=== PATIENT | male | born 1955 | race Hispanic/Latino ===

== ENCOUNTER 2019-12-15 14:50 | Inpatient (IN) | payer MEDICARE ==
[~2019-12-15] VITALS: Ht 167.6 cm; Wt 75.9 kg
--- NOTE | 2019-12-15 15:24 | Emergency Department Note ---
History of Present Illnes History of Present Illness Chief Complaint: General Medicine Complaints History of Present Illness This is a 64 year old male Chief Complaint Comment PATIENT IN FROM HOME WITH COMPLAINTS OF BILATERAL LOWER EXTREMITY SWELLING AND ABDOMINAL PAIN X 2 WEEKS; STATES WAS SENT BY DR LEMUS FOR ADMISSION. Historian: Patient Arrival Mode: Car Skin Care Instructor Required: Yes Onset (how long ago): week(s) Location: Legs Quality: swelling Radiation: Reports non-radiation Severity: moderate Onset quality: gradual Duration (how long): week(s) Timing of current episode: constant Progression: worsening Chronicity: new Context: Denies recent illness Relieving factors: none Exacerbating factors: none Associated symptoms: Reports denies other symptoms Treatments prior to arrival: none Past Medical/Family History Physician Review I have reviewed the patient's past medical and family history. Any updates have been documented here. Past Medical History Recent Fever: No Clinical Suspicion of Infectio: No New/Unexplained Change in Ment: No Other Medical History: BPH Past Surgical History: None Social History Physically hurt or threatened: No Review of Systems Review of Systems Constitutional: Reports no symptoms EENTM: Reports no symptoms Cardiovascular: Reports no symptoms, Reports edema (BLE) Respiratory: Reports no symptoms Gastrointestinal: Reports no symptoms Genitourinary: Reports no symptoms Musculoskeletal: Reports no symptoms Integumentary: Reports no symptoms Neurological: Reports no symptoms Psychological: Reports no symptoms Endocrine: Reports no symptoms Hematological/Lymphatic: Reports no symptoms Physical Exam Related Data Allergies: Coded Allergies: No Known Allergies (Unverified , 12/15/19) Triage Vital Signs Vital Signs Date Time Temp Pulse Resp B/P (MAP) Pulse Ox O2 Delivery O2 Flow Rate FiO2 12/15/19 15:02 98.4 92 18 132/66 100 Room Air Physical Exam CONSTITUTIONAL Constitutional: Present well-developed, Present well-nourished HENT HENT: Present normocephalic, Present atraumatic, Present oropharynx clear/moist, Present nose normal HENT L/R: Present left ext ear normal, Present right ext ear normal EYES Eyes: Reports PERRL, Reports conjunctivae normal NECK Neck: Present ROM normal PULMONARY Pulmonary: Present effort normal, Present breath sounds normal CARDIOVASCULAR Cardiovascular: Present regular rhythm, Present heart sounds normal, Present capillary refill normal, Present normal rate GASTROINTESTINAL Abdominal: Present soft, Present nontender, Present bowel sounds normal GENITOURINARY Genitourinary: Present exam deferred SKIN Skin: Present warm, Present dry MUSCULOSKELETAL Musculoskeletal: Present ROM normal NEUROLOGICAL Neurological: Present alert, Present oriented x 3, Present no gross motor or sensory deficits PSYCHOLOGICAL Psychological: Present mood/affect normal, Present judgement normal Procedures 12 Lead ECG Interpretation ECG Interpretation : Skin Care Instructor: Interpreted by ED physician Date: Dec 15, 2019 Rhythm: sinus rhythm BPM: 89 QRS axis: normal ST segment flattening: V4, V5, V6 T waves flattening: V4, V5, V6 Clinical Impression: non-specific ECG Assessment & Plan Medical Decision Making MDM 64-year-old male with a history of colon cancer presenting for bilateral lower extremity edema. He is sent to the emergency department by Dr. Lemus for admission for further workup of his metastatic colon cancer. Examination shows 4+ pitting edema to bilateral lower extremities is otherwise unremarkable. Patient was discussed with Dr. Corrales who is accepting for Dr. Lemus agreed to admit the patient. Reassessment Reassessment Well appearing, NAD Assessment & Plan Final Impression: (1) Leg swelling Depart Disposition: ADMITTED Last Vital Signs Date Time Temp Pulse Resp B/P (MAP) Pulse Ox O2 Delivery O2 Flow Rate FiO2 12/15/19 15:02 98.4 92 18 132/66 100 Room Air VIC BRASWELL MD Dec 15, 2019 15:24
--- OUTSIDE RECORDS SUMMARY | 2019-12-15 15:33 | XMS REPORT | Continuity of Care Document ---
Author Author [facility] Organization [facility] Address [address] [place] [address] Phone Unavailable Care Team Providers Care Car Usher Name Role Phone Unavailable Unavailable Payers Payer Name Policy Type Policy Number Effective Date Expiration Date S ource Problems This patient has no known problems. Allergies, Adverse Reactions, Alerts Allergy Name Allergy Type Status Severity Reaction(s) Onset Date Inacti ve Date Treating Clinician Comments Source doxycycline DA Active GA 2019-06-17 00:00:00 [facility] No Known Allergies DA Active U 2019-06-13 00:00:00 [facility] Medications This patient has no known medications. Procedures This patient has no known procedures. Results Test Description Test Time Test Comments Results Result Comments Source BASIC METABOLIC PANEL 2019-06-18 03:27:00 Test Item SODIUM (test code = NA) 139 mmol/L 136-145 N POTASSIUM (test code = K) 3.5 mmol/L 3.5-5.1 N CHLORIDE (test code = CL) 104.0 mmol/L 98-107 N CARBON DIOXIDE (test code = CO2) 27.0 mmol/L 21-32 N ANION GAP (test code = GAP) 11.5 10-20 N GLUCOSE (test code = GLU) 84 mg/dL 74-106 N BLOOD UREA NITROGEN (test code = BUN) 13 mg/dL 7-18 N GLOMERULAR FILTRATION RATE (test code = GFR) > 60 mL/min >=60 Estimated GFR by using Modified MDRD formula.Chronic kidney disease is defined as either kidney damageor GFR <60 mL/min/1.73 m2 for >3 months. CREATININE (test code = CREAT) 0.90 mg/dL 0.7-1.3 N BUN/CREATININE RATIO (test code = BUN/CREA) 14.4 10-20 N CALCIUM (test code = CA) 8.2 mg/dL 8.5-10.1 L BASIC METABOLIC [id number] 03:22:00* Test Item Value Reference Range Interpretation Comments SODIUM (test code = NA) 139 mmol/L 136-145 N POTASSIUM (test code = K) 3.5 mmol/L 3.5-5.1 N CHLORIDE (test code = CL) 104.0 mmol/L 98-107 N CARBON DIOXIDE (test code = CO2) mmol/L 21-32 ANION GAP (test code = GAP) 10-20 GLUCOSE (test code = GLU) mg/dL 74-106 BLOOD UREA NITROGEN (test code = BUN) mg/dL 7-18 GLOMERULAR FILTRATION RATE (test code = GFR) mL/min >=60 CREATININE (test code = CREAT) mg/dL 0.7-1.3 BUN/CREATININE RATIO (test code = BUN/CREA) 10-20 CALCIUM (test code = CA) mg/dL 8.5-10.1 CBC W/AUTO [id number] 02:47:00* Test Item Value Reference Range Interpretation Comments WHITE BLOOD CELL (test code = WBC) 5.5 K/mm3 4.5-12.5 N RED BLOOD CELL (test code = RBC) 3.64 mill/mm3 4.0-5.8 L HEMOGLOBIN (test code = HGB) 9.7 gram/dL 13.0-17.5 L HEMATOCRIT (test code = HCT) 30.7 % 42.0-52.0 L MEAN CELL VOLUME (test code = MCV) 84.3 fL 80-98 N MEAN CELL HGB (test code = MCH) 26.6 picogram 27.0-33.0 L MEAN CELL HGB CONCETRATION (test code = MCHC) 31.6 gram/dL 33.0-36. 0 L RED CELL DISTRIBUTION WIDTH (test code = RDW) 12.8 % 11.6-16. 2 N RED CELL DISTRIBUTION WIDTH SD (test code = RDW-SD) 39.5 fL 37 .0-51.0 N PLATELET COUNT (test code = PLT) 245 K/mm3 150-450 N MEAN PLATELET VOLUME (test code = MPV) 8.9 fL 6.7-11.0 N NEUTROPHIL % (test code = NT%) 52.3 % 39.0-69.0 N IMMATURE GRANULOCYTE % (test code = IG%) 0.5 % 0.0-5.0 N LYMPHOCYTE % (test code = LY%) 29.0 % 25.0-55.0 N MONOCYTE % (test code = MO%) 15.7 % 0.0-10.0 H EOSINOPHIL % (test code = EO%) 2.0 % 0.0-5.0 N BASOPHIL % (test code = BA%) 0.5 % 0.0-1.0 N NUCLEATED RBC % (test code = NRBC%) 0.0 % 0-0 N NEUTROPHIL # (test code = NT#) 2.87 K/mm3 1.8-7.7 N IMMATURE GRANULOCYTE # (test code = IG#) 0.03 x10 3/uL 0-0.03 N LYMPHOCYTE # (test code = LY#) 1.59 K/mm3 1.0-5.0 N MONOCYTE # (test code = MO#) 0.86 K/mm3 0-0.8 H EOSINOPHIL # (test code = EO#) 0.11 K/mm3 0.0-0.5 N BASOPHIL # (test code = BA#) 0.03 K/mm3 0.0-0.2 N NUCLEATED RBC # (test code = NRBC#) 0.00 K/mm3 0.0-0.1 N MANUAL DIFF REQUIRED (test code = MDIFF) NO - XR CHEST 1 [id number] 18:13:00 FAX: Idris Collazo II, MD [place]: [address]: ADM Name: MEDINA DODD [facility] : [birth year] Age/S: 64/M [address] [facility] Unit #: [id number] Loc: VPablo3029 [address] [address] Phys: Idris Collazo II, MD Acct: [id number] Dis Date: Status: ADM IN PHONE #: [phone] Exam Date: 06/17/2019 1800 FAX #: [phone] Reason: FEVER, DYSPNEA EXAMS: CPT CODE: [id number] XR CHEST 1 V [id number] REASON FOR EXAM: FEVER, DY SPNEA Exam Order Date: 06/17/2019 5:08 PM Ordering M. D.: Idris Collazo II, MD PROCEDURE: - XR CHEST 1 V CO MPARISON: Chest x-ray June 13, 2019 FINDINGS: The lung s are hypoinflated and there are atelectatic changes in the middle lobe ve rsus a right pericardial fat pad that obscures the right cardiophrenic rec ess. This finding is unchanged from the prior exam. The remainder of the l ungs are clear. There is no pleural effusion or pneumothorax. Pulmonary va scularity is within normal limits. Cardiomediastinal silhouette is prominent however this may be exacerbated by the low lung volumes. The me diastinal contours are within normal limits. Degenerative ch anges are present in the spine. The visualized upper abdomen is wi thin normal limits. IMPRESSION: No acute cardiop ulmonary process or appreciable change from the prior exam. Location: [facility] Electronically Signed by Steffen Miller MD on 06/17 at 1813 Reported and signed by: Steffen Miller MD CC: Idris Collazo II, MD Technologist: ABBEY MAHER RT (R) Trnscrd Date/Time/By: 06/17 (1812) : By: [email or web address] [facility] Print D/T: S: 06/17/2019 (1815) PAGE 1 Signed Report BASIC METABOLIC [id number] 02:19:00* Test Item Value Reference Range Interpretation Comments SODIUM (test code = NA) 136 mmol/L 136-145 N POTASSIUM (test code = K) 3.6 mmol/L 3.5-5.1 N CHLORIDE (test code = CL) 106.0 mmol/L 98-107 N CARBON DIOXIDE (test code = CO2) 24.0 mmol/L 21-32 N ANION GAP (test code = GAP) 9.6 10-20 L GLUCOSE (test code = GLU) 84 mg/dL 74-106 N BLOOD UREA NITROGEN (test code = BUN) 16 mg/dL 7-18 N GLOMERULAR FILTRATION RATE (test code = GFR) > 60 mL/min >=60 Estimated GFR by using Modified MDRD formula.Chronic kidney disease is defined as either kidney damageor GFR <60 mL/min/1.73 m2 for >3 months. CREATININE (test code = CREAT) 0.90 mg/dL 0.7-1.3 N BUN/CREATININE RATIO (test code = BUN/CREA) 17.8 10-20 N CALCIUM (test code = CA) 7.8 mg/dL 8.5-10.1 L BASIC METABOLIC [id number] 02:14:00* Test Item Value Reference Range Interpretation Comments SODIUM (test code = NA) 136 mmol/L 136-145 N POTASSIUM (test code = K) 3.6 mmol/L 3.5-5.1 N CHLORIDE (test code = CL) 106.0 mmol/L 98-107 N CARBON DIOXIDE (test code = CO2) mmol/L 21-32 ANION GAP (test code = GAP) 10-20 GLUCOSE (test code = GLU) mg/dL 74-106 BLOOD UREA NITROGEN (test code = BUN) mg/dL 7-18 GLOMERULAR FILTRATION RATE (test code = GFR) mL/min >=60 CREATININE (test code = CREAT) mg/dL 0.7-1.3 BUN/CREATININE RATIO (test code = BUN/CREA) 10-20 CALCIUM (test code = CA) mg/dL 8.5-10.1 CBC W/AUTO [id number] 01:59:00* Test Item Value Reference Range Interpretation Comments WHITE BLOOD CELL (test code = WBC) 6.7 K/mm3 4.5-12.5 N RED BLOOD CELL (test code = RBC) 3.35 mill/mm3 4.0-5.8 L HEMOGLOBIN (test code = HGB) 9.1 gram/dL 13.0-17.5 L HEMATOCRIT (test code = HCT) 28.5 % 42.0-52.0 L MEAN CELL VOLUME (test code = MCV) 85.1 fL 80-98 N MEAN CELL HGB (test code = MCH) 27.2 picogram 27.0-33.0 N MEAN CELL HGB CONCETRATION (test code = MCHC) 31.9 gram/dL 33.0-36. 0 L RED CELL DISTRIBUTION WIDTH (test code = RDW) 13.1 % 11.6-16. 2 N RED CELL DISTRIBUTION WIDTH SD (test code = RDW-SD) 40.3 fL 37 .0-51.0 N PLATELET COUNT (test code = PLT) 214 K/mm3 150-450 MEAN PLATELET VOLUME (test code = MPV) 9.1 fL 6.7-11.0 N NEUTROPHIL % (test code = NT%) 54.7 % 39.0-69.0 N IMMATURE GRANULOCYTE % (test code = IG%) 0.6 % 0.0-5.0 N LYMPHOCYTE % (test code = LY%) 24.3 % 25.0-55.0 L MONOCYTE % (test code = MO%) 18.9 % 0.0-10.0 H EOSINOPHIL % (test code = EO%) 0.9 % 0.0-5.0 N BASOPHIL % (test code = BA%) 0.6 % 0.0-1.0 N NUCLEATED RBC % (test code = NRBC%) 0.0 % 0-0 N NEUTROPHIL # (test code = NT#) 3.67 K/mm3 1.8-7.7 N IMMATURE GRANULOCYTE # (test code = IG#) 0.04 x10 3/uL 0-0.03 H LYMPHOCYTE # (test code = LY#) 1.63 K/mm3 1.0-5.0 N MONOCYTE # (test code = MO#) 1.27 K/mm3 0-0.8 H EOSINOPHIL # (test code = EO#) 0.06 K/mm3 0.0-0.5 N BASOPHIL # (test code = BA#) 0.04 K/mm3 0.0-0.2 N NUCLEATED RBC # (test code = NRBC#) 0.00 K/mm3 0.0-0.1 N MANUAL DIFF REQUIRED (test code = MDIFF) NO - MRI L-SPINE W/O [id number] 18:31:00 FAX: Idris Collazo II, MD [place]: [address] St: ADM FAX: Daja Goff MD [phone] Name: MEDINA WARD [facility] : 1955 Age/S: 64/M [address] [facility] Unit #: [id number] Loc: V3029 [place] [address] Phys: Idris Collazo II, MD Acct: [id number] Dis Date: Status: ADM IN PHONE #: [phone] Exam Date: 06/16/2019 9983 FAX #: [phone] Reason: acute rle weakness, r/o radiculopathy EXAMS: CPT CODE: [id number] MRI L-SPINE W/O CONT [id number] HISTORY: acute rle weakness, r/o radiculopathy TECHNIQUE: Sagittal T2, sagittal T1, sagittal STIR, axial T1, and axial T2 sequences of the lumbar spine acquired without contrast. COMPARISON: None FINDINGS: No spondylolisthesis of the lumbar spine. There is a compression fracture of the L2 vertebral body. However there is no edema of the vertebral body suggesting that this is a chronic finding. Remaining vertebral bodies demonstrate normal height. There is also disc desiccation and multiple levels of the lumbar spine however the disc heights are preserved. The conus medullaris terminates at L2. There is severe left-sided foraminal narrowing at L2-L3 with the left L2 nerve root appearing to contact the adjacent facet joint. Facet hypertrophy with broad-based disc bulge causes moderate lateral foraminal narrowing. The right L3 nerve root appears to contact the posterior lateral aspect of the bulging disc. Bilateral facet hypertrophy and broad-based disc bulge causes mild bilateral foraminal narrowing at L4-L5. Broad-based disc bulge with bilateral facet hy pertrophy causes mild narrowing of the central canal and moderate right-si ded foraminal narrowing. 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 IMPRESSION: Chroni c compression fracture of the L2 vertebral body and multilevel degenerat garry changes. This results in foraminal narrowing and central canal narro wing as described above. The right L3 nerve root and the left L2 nerve r oot appear to contact the adjacent disc and facet prospectively. Correla te clinically for radiculopathy. Location: [facility] PAGE 1 Signed Report (CONTINUED) FAX: Idris Walls II, MD [place]: St: [facility] FAX: Adeline Goff MD [phone] Name: MEDINA WARD [facility] : 1955 Age/S: 64/M [address] [facility] Unit #: [id number] Loc: V.3029 [place] [address] Phys: Idris Collazo II, MD Acct: [id number] Dis Date: Status: ADM IN PHONE #: [phone] Exam Date: 06/16/2019 1615 FAX #: [phone] Reason: acute rle weakness, r/o radiculopathy EXAMS: CPT CODE: [id number] MRI L-SPINE W/O CONT [id number] < Continued> at 1831 Reported and signed by: Steffen Miller MD CC: Idris Collazo II, MD; Daja Goff MD Technologist: RT MARIIA - MRI [facility] Date/Time/By: 06/16/2019 (1830) : By: [email or web address] Orig Print D/T: S: 06/16/2019 (1833) PAGE 2 Signed Report - MRI LOW EXT W/O CONT [id number] 18:25:00 FAX: Eunice Ruiz [facility] [phone] [place]: St: ADM FAX: Daja Goff MD [phone] [facility] 1955 Age/S: 64/M [address] Unit #: [id number] Loc: V.3029 [place] [address] Phys: Eunice Hernandez DPM Acct: [id number] Dis Date: Status: ADM IN PHONE #: [phone] Exam Date: 06/16/2019 1640 FAX #: [phone] Reason: ++ edema abscess?? EXAMS: CPT CODE: [id number] MRI LOW EXT W/[place] [id number] HISTORY: Cellulitis TECHNIQUE: Sagittal T1, sagittal STIR, axial T1, axial T2 fat-sat, coronal T2, and coronal STIR sequences of the right foot were acquired without contrast. COMPARISON: None FINDINGS: There is edema of the soft tissues on the dorsum of the foot. However there is no abnormal marrow signal of the bones of the foot as would be expected with osteomyelitis. The bones are appropriately aligned although there is degenerative changes in the first MTP joint. Additionally no discrete fluid collection is seen. The tendons and ligaments of the foot are within normal limits. Ankle mortise is appropriately aligned. Plantar fascia is within normal limits. IMPRESSION: Cellulitis of the right foot but no findings to suggest osteomyelitis and no findings to suggest abscess. Location: [facility] at 1825 Reported and signed by: Steffen Miller MD CC: Eunice Hernandez DPM; Daja Goff MD Technologist: ISAÍAS MERRITTRT - MRI Trnscrd Da te/Time/By: 06/16/2019 (1824) : By: [email or web address] Orig Print D/T: S: 06/16 (1827) PAGE 1 Signed Report [id number] 14:40:00* Test Item Value Reference Range Interpretation Comments VANCOMYCIN (test code = VANCO) 15.9 UG/ML 5.0-45.0 N BASIC METABOLIC [id number] 06:05:00* Test Item Value Reference Range Interpretation Comments SODIUM (test code = NA) 139 mmol/L 136-145 N POTASSIUM (test code = K) 4.1 mmol/L 3.5-5.1 N CHLORIDE (test code = CL) 106.0 mmol/L 98-107 N CARBON DIOXIDE (test code = CO2) 26.0 mmol/L 21-32 N ANION GAP (test code = GAP) 11.1 10-20 N GLUCOSE (test code = GLU) 95 mg/dL 74-106 N BLOOD UREA NITROGEN (test code = BUN) 12 mg/dL 7-18 N GLOMERULAR FILTRATION RATE (test code = GFR) > 60 mL/min >=60 Estimated GFR by using Modified MDRD formula.Chronic kidney disease is defined as either kidney damageor GFR <60 mL/min/1.73 m2 for >3 months. CREATININE (test code = CREAT) 1.00 mg/dL 0.7-1.3 N BUN/CREATININE RATIO (test code = BUN/CREA) 12.0 10-20 N CALCIUM (test code = CA) 9.2 mg/dL 8.5-10.1 N BASIC METABOLIC [id number] 06:00:00* Test Item Value Reference Range Interpretation Comments SODIUM (test code = NA) 139 mmol/L 136-145 N POTASSIUM (test code = K) 4.1 mmol/L 3.5-5.1 N CHLORIDE (test code = CL) 106.0 mmol/L 98-107 N CARBON DIOXIDE (test code = CO2) mmol/L 21-32 ANION GAP (test code = GAP) 10-20 GLUCOSE (test code = GLU) mg/dL 74-106 BLOOD UREA NITROGEN (test code = BUN) mg/dL 7-18 GLOMERULAR FILTRATION RATE (test code = GFR) mL/min >=60 CREATININE (test code = CREAT) mg/dL 0.7-1.3 BUN/CREATININE RATIO (test code = BUN/CREA) 10-20 CALCIUM (test code = CA) mg/dL 8.5-10.1 CBC W/AUTO [id number] 05:37:00* Test Item Value Reference Range Interpretation Comments WHITE BLOOD CELL (test code = WBC) 13.3 K/mm3 4.5-12.5 H RED BLOOD CELL (test code = RBC) 3.79 mill/mm3 4.0-5.8 L HEMOGLOBIN (test code = HGB) 10.3 gram/dL 13.0-17.5 L HEMATOCRIT (test code = HCT) 32.1 % 42.0-52.0 L MEAN CELL VOLUME (test code = MCV) 84.7 fL 80-98 N MEAN CELL HGB (test code = MCH) 27.2 picogram 27.0-33.0 N MEAN CELL HGB CONCETRATION (test code = MCHC) 32.1 gram/dL 33.0-36. 0 L RED CELL DISTRIBUTION WIDTH (test code = RDW) 13.2 % 11.6-16. 2 N RED CELL DISTRIBUTION WIDTH SD (test code = RDW-SD) 40.9 fL 37 .0-51.0 N PLATELET COUNT (test code = PLT) 308 K/mm3 150-450 N MEAN PLATELET VOLUME (test code = MPV) 9.2 fL 6.7-11.0 N NEUTROPHIL % (test code = NT%) 64.9 % 39.0-69.0 N IMMATURE GRANULOCYTE % (test code = IG%) 0.5 % 0.0-5.0 N LYMPHOCYTE % (test code = LY%) 22.5 % 25.0-55.0 L MONOCYTE % (test code = MO%) 9.8 % 0.0-10.0 N EOSINOPHIL % (test code = EO%) 1.7 % 0.0-5.0 N BASOPHIL % (test code = BA%) 0.6 % 0.0-1.0 N NUCLEATED RBC % (test code = NRBC%) 0.0 % 0-0 N NEUTROPHIL # (test code = NT#) 8.61 K/mm3 1.8-7.7 H IMMATURE GRANULOCYTE # (test code = IG#) 0.07 x10 3/uL 0-0.03 H LYMPHOCYTE # (test code = LY#) 2.99 K/mm3 1.0-5.0 N MONOCYTE # (test code = MO#) 1.30 K/mm3 0-0.8 H EOSINOPHIL # (test code = EO#) 0.23 K/mm3 0.0-0.5 N BASOPHIL # (test code = BA#) 0.08 K/mm3 0.0-0.2 N NUCLEATED RBC # (test code = NRBC#) 0.00 K/mm3 0.0-0.1 N MANUAL DIFF REQUIRED (test code = MDIFF) NO - XR HIP W/PEL UNI 2+V [id number] 15:52:00 FAX: Osvaldo Cho MD [phone] [place]: St: [facility] FAX: Daja Goff MD [phone] Name: MEDINA WARD [facility] : 1955 Age/S: 64/M [address] [facility] Unit #: [id number] Loc: [address] [address] Phys: Daja Goff MD Acct: [id number] Dis Date: Status: ADM IN PHONE #: [phone] Exam Date: 06/14/2019 1533 FAX #: [phone] Reason: pain EXAMS: CPT CODE: [id number] XR HIP W/PEL UNI 2+[place] [id number] HISTORY: pain EXAM: AP pelvis as well as AP and frog-leg views of the right hip Comparison: None FIN DINGS: No acute fracture of the bony pelvis. No micheal stases of the SI joints or pubic symphysis. Hip joints are not di slocated. Proximal femurs are intact. Lower lumbar spine is unremarkable. IMPRESSION: Negative radiographic exami nation of the bony pelvis. Location: [facility] Signed by Steffen Miller MD on 06/14/2019 at 1552 Rep orted and signed by: Steffen Miller MD CC: Osvadlo Cho MD; Daja Argueta MD Technologist: Kiara Akbar RT(R); Natasha Chambers(R) Trnscrd Date/Time/By: 06/14/2019 (1552) : By: [email or web address] Orig Print D/T: S: 06/14/2019 (5100) PAGE 1 Signed Report [id number] 13:34:00* Test Item Value Reference Range Interpretation Comments GLYCOSYLATED HEMOGLOBIN (HA1C) (test code = GLYHGB) 5.6 % HbA1 SUGGESTED DIAGNOSIS: HbA1C (%) Diabetic >6.4Prediabetes 5.7 - 6.4Normal <5.7 ESTIMATED AVERAGE GLUCOSE (test code = EAG) 114 MG/DL CBC W/O [id number] 13:16:00* Test Item Value Reference Range Interpretation Comments WHITE BLOOD CELL (test code = WBC) 13.2 K/mm3 4.5-12.5 H RED BLOOD CELL (test code = RBC) 4.01 mill/mm3 4.0-5.8 N HEMOGLOBIN (test code = HGB) 10.8 gram/dL 13.0-17.5 L HEMATOCRIT (test code = HCT) 34.5 % 42.0-52.0 L MEAN CELL VOLUME (test code = MCV) 86.0 fL 80-98 N MEAN CELL HGB (test code = MCH) 26.9 picogram 27.0-33.0 L MEAN CELL HGB CONCETRATION (test code = MCHC) 31.3 gram/dL 33.0-36. 0 L RED CELL DISTRIBUTION WIDTH (test code = RDW) 13.2 % 11.6-16. 2 N PLATELET COUNT (test code = PLT) 313 K/mm3 150-450 N MEAN PLATELET VOLUME (test code = MPV) 9.2 fL 6.7-11.0 N BASIC METABOLIC [id number] 06:54:00* Test Item Value Reference Range Interpretation Comments SODIUM (test code = NA) 139 mmol/L 136-145 N POTASSIUM (test code = K) 4.0 mmol/L 3.5-5.1 N CHLORIDE (test code = CL) 109.0 mmol/L 98-107 H CARBON DIOXIDE (test code = CO2) 24.0 mmol/L 21-32 N ANION GAP (test code = GAP) 10.0 10-20 N GLUCOSE (test code = GLU) 89 mg/dL 74-106 N BLOOD UREA NITROGEN (test code = BUN) 14 mg/dL 7-18 N GLOMERULAR FILTRATION RATE (test code = GFR) > 60 mL/min >=60 Estimated GFR by using Modified MDRD formula.Chronic kidney disease is defined as either kidney damageor GFR <60 mL/min/1.73 m2 for >3 months. CREATININE (test code = CREAT) 0.90 mg/dL 0.7-1.3 N BUN/CREATININE RATIO (test code = BUN/CREA) 15.6 10-20 N CALCIUM (test code = CA) 8.8 mg/dL 8.5-10.1 N LIPID PROFILE (CORONARY RISK)2019-06-14 06:54:00* Test Item Value Reference Range Interpretation Comments TRIGLYCERIDES (test code = TRIG) 111 mg/dL 20-150 N CHOLESTEROL (test code = CHOL) 99 mg/dL 0-200 N CHOLESTEROL/HDL RATIO (test code = CHOLHDL) 2.0 RATIO 0-4.9 N RISK ASSOCIATED WITH CHOL/HDL RATIOS: Risk Male Female1/2 AVERAGE 3.43 3.27AVERAGE 4.97 4.442X AVERAGE 9.55 7.053X AVERAGE 23.39 11.04 REFERENCE VALUE IS RELATED TO RISK LEVELS ASRECOMMENDED BY THE JENNA. HEART, LUNG, AND BLOOD INST. HDL CHOLESTEROL (test code = HDL) 34 mg/dL 40-60 L LIPOPROTEIN LDL (test code = LDL) 59 mg/dL 100-129 L Reference Interval: mg/dL mmol/L Optimal <100 <2.6Near/above optimal 100-129 2.6- 3.3Borderline High 130-159 3.4-4.1High 160-189 4.1-4.9Very High >=190 >=4.9========= This LDL result is a direct measurement.========= FE W/TOTAL IRON BINDING CAP.2019-06-14 06:54:00* Test Item Value Reference Range Interpretation Comments SERUM IRON (test code = IRON) 37 ug/dL 50-175 L TOTAL IRON BINDING CAPACITY (test code = TIBC) 383 mcg/dL 250-450 N IRON SATURATION (test code = FESAT) 9.66 % 13-45 L [id number] 06:54:00* Test Item Value Reference Range Interpretation Comments FERRITIN (test code = KAUSHAL) 30 ng/mL 8-388 N BASIC METABOLIC [id number] 06:02:00* Test Item Value Reference Range Interpretation Comments SODIUM (test code = NA) 139 mmol/L 136-145 N POTASSIUM (test code = K) 4.0 mmol/L 3.5-5.1 N CHLORIDE (test code = CL) 109.0 mmol/L 98-107 H CARBON DIOXIDE (test code = CO2) 24.0 mmol/L 21-32 N ANION GAP (test code = GAP) 10.0 10-20 N GLUCOSE (test code = GLU) 89 mg/dL 74-106 N BLOOD UREA NITROGEN (test code = BUN) 14 mg/dL 7-18 N GLOMERULAR FILTRATION RATE (test code = GFR) mL/min >=60 CREATININE (test code = CREAT) mg/dL 0.7-1.3 BUN/CREATININE RATIO (test code = BUN/CREA) 10-20 CALCIUM (test code = CA) 8.8 mg/dL 8.5-10.1 N LIPID PROFILE (CORONARY RISK)2019-06-14 06:02:00* Test Item Value Reference Range Interpretation Comments TRIGLYCERIDES (test code = TRIG) mg/dL 20-150 CHOLESTEROL (test code = CHOL) mg/dL 0-200 CHOLESTEROL/HDL RATIO (test code = CHOLHDL) RATIO 0-4.9 HDL CHOLESTEROL (test code = HDL) mg/dL 40-60 LIPOPROTEIN LDL (test code = LDL) mg/dL 100-129 FE W/TOTAL IRON BINDING CAP.2019-06-14 06:02:00* Test Item Value Reference Range Interpretation Comments SERUM IRON (test code = IRON) ug/dL 50-175 TOTAL IRON BINDING CAPACITY (test code = TIBC) mcg/dL 250-450 IRON SATURATION (test code = FESAT) % 13-45 [id number] 06:02:00* Test Item Value Reference Range Interpretation Comments FERRITIN (test code = KAUSHAL) ng/mL 8-388 BASIC METABOLIC [id number] 05:59:00* Test Item Value Reference Range Interpretation Comments SODIUM (test code = NA) 139 mmol/L 136-145 N POTASSIUM (test code = K) 4.0 mmol/L 3.5-5.1 N CHLORIDE (test code = CL) 109.0 mmol/L 98-107 H CARBON DIOXIDE (test code = CO2) mmol/L 21-32 ANION GAP (test code = GAP) 10-20 GLUCOSE (test code = GLU) mg/dL 74-106 BLOOD UREA NITROGEN (test code = BUN) mg/dL 7-18 GLOMERULAR FILTRATION RATE (test code = GFR) mL/min >=60 CREATININE (test code = CREAT) mg/dL 0.7-1.3 BUN/CREATININE RATIO (test code = BUN/CREA) 10-20 CALCIUM (test code = CA) mg/dL 8.5-10.1 LIPID PROFILE (CORONARY RISK)2019-06-14 05:59:00* Test Item Value Reference Range Interpretation Comments TRIGLYCERIDES (test code = TRIG) mg/dL 20-150 CHOLESTEROL (test code = CHOL) mg/dL 0-200 CHOLESTEROL/HDL RATIO (test code = CHOLHDL) RATIO 0-4.9 HDL CHOLESTEROL (test code = HDL) mg/dL 40-60 LIPOPROTEIN LDL (test code = LDL) mg/dL 100-129 FE W/TOTAL IRON BINDING CAP.2019-06-14 05:59:00* Test Item Value Reference Range Interpretation Comments SERUM IRON (test code = IRON) ug/dL 50-175 TOTAL IRON BINDING CAPACITY (test code = TIBC) mcg/dL 250-450 IRON SATURATION (test code = FESAT) % 13-45 [id number] 05:59:00* Test Item Value Reference Range Interpretation Comments FERRITIN (test code = KAUSHAL) ng/mL 8-388 URINALYSIS [id number] 19:22:00* Test Item Value Reference Range Interpretation Comments UA COLOR (test code = COLU) COLORLESS YELLOW A UA APPEARANCE (test code = APPU) CLEAR CLEAR UA GLUCOSE DIPSTICK (test code = DGLUU) NEGATIVE mg/dL NEGATIVE UA BILIRUBIN DIPSTICK (test code = BILU) NEGATIVE mg/dL NEGATIVE UA KETONE DIPSTICK (test code = KETU) NEGATIVE mg/dL NEGATIVE UA SPECIFIC GRAVITY (test code = SGU) 1.011 1.001-1.035 UA BLOOD DIPSTICK (test code = SILVER) Negative mg/dL NEGATIVE UA PH DIPSTICK (test code = SHARYN) 6.5 5.0-8.0 UA PROTEIN DIPSTICK (test code = PROU) NEGATIVE mg/dL NEGATIVE UA UROBILINIOGEN DIPSTICK (test code = URO) Normal mg/dL NEGATIVE UA NITRITE DIPSTICK (test code = SANA) NEGATIVE NEGATIVE UA LEUKOCYTE ESTERASE W REFLEX (test code = LEUUR) NEGATIVE Renu/uL NEGATIVE UA WBC (test code = WBCU) per HPF 0-5 UA RBC (test code = RBCU) per HPF 0-5 UA EPITHELIAL CELLS (test code = EPIU) per HPF Few UA BACTERIA (test code = BACU) per HPF NONE Urine Source? Clean CatchURINALYSIS [id number] 19:22:00* Test Item Value Reference Range Interpretation Comments UA COLOR (test code = COLU) COLORLESS YELLOW A UA APPEARANCE (test code = APPU) CLEAR CLEAR UA GLUCOSE DIPSTICK (test code = DGLUU) NEGATIVE mg/dL NEGATIVE UA BILIRUBIN DIPSTICK (test code = BILU) NEGATIVE mg/dL NEGATIVE UA KETONE DIPSTICK (test code = KETU) NEGATIVE mg/dL NEGATIVE UA SPECIFIC GRAVITY (test code = SGU) 1.011 1.001-1.035 UA BLOOD DIPSTICK (test code = SILVER) Negative mg/dL NEGATIVE UA PH DIPSTICK (test code = SHARYN) 6.5 5.0-8.0 UA PROTEIN DIPSTICK (test code = PROU) NEGATIVE mg/dL NEGATIVE UA UROBILINIOGEN DIPSTICK (test code = URO) Normal mg/dL NEGATIVE UA NITRITE DIPSTICK (test code = SANA) NEGATIVE NEGATIVE UA LEUKOCYTE ESTERASE W REFLEX (test code = LEUUR) NEGATIVE Renu/uL NEGATIVE UA WBC (test code = WBCU) NONE SEEN per HPF 0-5 UA RBC (test code = RBCU) 0-2 #/HPF 0-5 UA EPITHELIAL CELLS (test code = EPIU) None seen per HPF FEW UA BACTERIA (test code = BACU) NONE SEEN #/HPF NONE Urine Source? Clean CatchLACTIC [id number] 18:47:00* Test Item Value Reference Range Interpretation Comments LACTIC ACID (test code = LACT) 1.2 mmol/L 0.4-1.9 N B-TYPE NATRIURETIC [id number] 15:33:00* Test Item Value Reference Range Interpretation Comments B-TYPE NATRIURETIC PEPTIDE (test code = BNP) 31.92 pgram/mL 0-100 N PROTHROMBIN [id number] 15:28:00* Test Item Value Reference Range Interpretation Comments PROTHROMBIN TIME PATIENT (test code = PTP) 14.6 seconds 9.0-14.0 H INTERNATIONAL NORMAL RATIO (test code = INR) 1.2 0.8-1.2 N The therapeutic range for oral anticoagulant therapy formost indications is an international normalized ratio (INR)of between 2.0 and 3.0. The recommended therapeutic INRrange for various clinical situations is listed below: Clinical Situation INR range Pulmonary e mbolism treatment (2.0-3.0)Venous thrombosis treatmentVenous thrombosis prophylaxis (high risk surgery)Prevention of systemic embolism from: Acute myocardial infarction Valvular heart disease Atrial fibrillation Mechanical prosthetic heart valves (2.5-3.5) IS PATIENT ON ANTICOAGULANTS? NTHROMBOPLASTIN TIME [id number] 15:28:00* Test Item Value Reference Range Interpretation Comments THROMBOPLASTIN TIME PARTIAL (test code = PTT) 34.0 seconds 25.0-36. 5 N IS PATIENT ON ANTICOAGULANTS? NLACTIC [id number] 15:25:00* Test Item Value Reference Range Interpretation Comments LACTIC ACID (test code = LACT) 2.4 mmol/L 0.4-1.9 HH Results called to DR ESPOSITO by [email or web address] 06/13/19 1525Critical results verified and read back by Nurse? Y BASIC METABOLIC [id number] 15:08:00* Test Item Value Reference Range Interpretation Comments SODIUM (test code = NA) 137 mmol/L 136-145 N POTASSIUM (test code = K) 4.1 mmol/L 3.5-5.1 N CHLORIDE (test code = CL) 109.0 mmol/L 98-107 H CARBON DIOXIDE (test code = CO2) 21.0 mmol/L 21-32 N ANION GAP (test code = GAP) 11.1 10-20 N GLUCOSE (test code = GLU) 100 mg/dL 74-106 N BLOOD UREA NITROGEN (test code = BUN) 17 mg/dL 7-18 N GLOMERULAR FILTRATION RATE (test code = GFR) > 60 mL/min >=60 Estimated GFR by using Modified MDRD formula.Chronic kidney disease is defined as either kidney damageor GFR <60 mL/min/1.73 m2 for >3 months. CREATININE (test code = CREAT) 0.90 mg/dL 0.7-1.3 N BUN/CREATININE RATIO (test code = BUN/CREA) 18.9 10-20 N CALCIUM (test code = CA) 9.0 mg/dL 8.5-10.1 N HEPATIC FUNCTION [id number] 15:08:00* Test Item Value Reference Range Interpretation Comments TOTAL PROTEIN (test code = PROT) 8.1 gram/dL 6.4-8.2 N ALBUMIN (test code = ALB) 2.7 g/dL 3.4-5.0 L GLOBULIN (test code = GLOB) 5.4 gram/dL 2.7-4.2 H ALBUMIN/GLOBULIN RATIO (test code = A/G) 0.5 0.75-1.50 L BILIRUBIN TOTAL (test code = BILT) 0.20 mg/dL 0.0-1.0 N BILIRUBIN DIRECT (test code = BILD) 0.09 mg/dL 0.0-0.20 N SGOT/AST (test code = AST) 13 IUnit/L 15-37 L SGPT/ALT (test code = ALT) 13 IUnit/L 12-78 N ALKALINE PHOSPHATASE TOTAL (test code = ALKP) 203 IUnit/L 45-117 H Note change in reference range due to change in reagent. [id number] 15:08:00* Test Item Value Reference Range Interpretation Comments TROPONIN-I (test code = TROPI) <0.015 ng/mL 0-0.045 N BASIC METABOLIC [id number] 14:58:00* Test Item Value Reference Range Interpretation Comments SODIUM (test code = NA) 137 mmol/L 136-145 N POTASSIUM (test code = K) 4.1 mmol/L 3.5-5.1 N CHLORIDE (test code = CL) 109.0 mmol/L 98-107 H CARBON DIOXIDE (test code = CO2) mmol/L 21-32 ANION GAP (test code = GAP) 10-20 GLUCOSE (test code = GLU) mg/dL 74-106 BLOOD UREA NITROGEN (test code = BUN) mg/dL 7-18 GLOMERULAR FILTRATION RATE (test code = GFR) mL/min >=60 CREATININE (test code = CREAT) mg/dL 0.7-1.3 BUN/CREATININE RATIO (test code = BUN/CREA) 10-20 CALCIUM (test code = CA) mg/dL 8.5-10.1 HEPATIC FUNCTION [id number] 14:58:00* Test Item Value Reference Range Interpretation Comments TOTAL PROTEIN (test code = PROT) gram/dL 6.4-8.2 ALBUMIN (test code = ALB) g/dL 3.4-5.0 GLOBULIN (test code = GLOB) gram/dL 2.7-4.2 ALBUMIN/GLOBULIN RATIO (test code = A/G) 0.75-1.50 BILIRUBIN TOTAL (test code = BILT) mg/dL 0.0-1.0 BILIRUBIN DIRECT (test code = BILD) mg/dL 0.0-0.20 SGOT/AST (test code = AST) IUnit/L 15-37 SGPT/ALT (test code = ALT) IUnit/L 12-78 ALKALINE PHOSPHATASE TOTAL (test code = ALKP) IUnit/L 45-117 [id number] 14:58:00* Test Item Value Reference Range Interpretation Comments TROPONIN-I (test code = TROPI) ng/mL 0-0.045 - XR ANKLE 3 + V [id number] 14:42:00 FAX: Gene Esposito MD [phone] [place]: B St: REG Name: MEDINA DODD [facility] : [birth year] Age/S: 64/M [address] [facility] Unit #: [id number] Loc: [place] [address] Phys: Gene Esposito MD Acct: [id number] Dis Date: Status: REG ER PHONE #: [phone] Exam Date: 06/13/2019 1430 FAX #: [phone] Reason: leg swelling redness EXAMS: CPT CODE: [id number] XR ANKLE 3 + V RT [id number] CLINICAL HISTORY: leg swelling red ness TECHNIQUE: AP, oblique, and lateral views of the right foot a nd ankle as well as AP and lateral views of the right tibia and fibula COMPARISON: None FINDINGS: No acute fract ure or dislocation. Bony trabecular pattern is unremarkable. No cortical d estruction or periosteal reaction. Joint spaces are preserved. An kle mortise is appropriately aligned. Moderate-sized calcaneal enthesophyt es are present. Intertarsal degenerative changes are present. There is diffuse swelling of the soft tissues throughout the visualized lower extremity. Vascular calcifications are also present. IMPRESSION: Diffuse soft tissue swelling of the visualized right lower extremity but no joint effusion or acute bony abnormality. Location: [facility] at 1442 Reported and signed by: Steffen kim MD CC: Gene Esposito MD Technologist: JIMMIE ERICKSON RT(R) Trnscrd Da te/Time/By: 06/13/2019 (9245) : By: [email or web address] Orig Print D/T: S: 06/13 (2791) PAGE 1 Signed Report - XR FOOT 3 + V [id number] 14:42:00 FAX: Gene Esposito MD [phone] [place]: St: REG Name: MEDINA DODD [facility] : [birth year] Age/S: 64/M [address] [facility] Unit #: [id number] Loc: [place] [address] Phys: Gene Esposito MD Acct: [id number] Dis Date: Status: REG ER PHONE #: [phone] Exam Date: 06/13/2019 1430 FAX #: [phone] Reason: leg swelling redness EXAMS: CPT CODE: [id number] XR FOOT 3 + V RT 13651 CLINICAL HISTORY: leg swelling red ness TECHNIQUE: AP, oblique, and lateral views of the right foot a nd ankle as well as AP and lateral views of the right tibia and fibula COMPARISON: None FINDINGS: No acute fract ure or dislocation. Bony trabecular pattern is unremarkable. No cortical d estruction or periosteal reaction. Joint spaces are preserved. An kle mortise is appropriately aligned. Moderate-sized calcaneal enthesophyt es are present. Intertarsal degenerative changes are present. There is diffuse swelling of the soft tissues throughout the visualized lower extremity. Vascular calcifications are also present. IMPRESSION: Diffuse soft tissue swelling of the visualized right lower extremity but no joint effusion or acute bony abnormality. Location: [facility] at 1442 Reported and signed by: Steffen kim MD CC: Gene Esposito MD Technologist: JIMMIE ERICKSON RT(R) Trnscrd Da te/Time/By: 06/13/2019 (9316) : By: [email or web address] Orig Print D/T: S: 06/13 (0362) PAGE 1 Signed Report - XR TIBIA/FIBULA 2 V [id number] 14:42:00 FAX: Gene Esposito MD [phone] [place]: St: REG Name: MEDINA DODD [facility] : [birth year] Age/S: 64/M [address] [facility] Unit #: [id number] Loc: [place] [address] Phys: Gene Esposito MD Acct: [id number] Dis Date: Status: REG ER PHONE #: [phone] Exam Date: 06/13/2019 1430 FAX #: [phone] Reason: leg swelling redness EXAMS: CPT CODE: [id number] XR TIBIA/FIBULA 2 [place] [address] CLINICAL HISTORY: leg swelling red ness TECHNIQUE: AP, oblique, and lateral views of the right foot a nd ankle as well as AP and lateral views of the right tibia and fibula COMPARISON: None FINDINGS: No acute fract ure or dislocation. Bony trabecular pattern is unremarkable. No cortical d estruction or periosteal reaction. Joint spaces are preserved. An kle mortise is appropriately aligned. Moderate-sized calcaneal enthesophyt es are present. Intertarsal degenerative changes are present. There is diffuse swelling of the soft tissues throughout the visualized lower extremity. Vascular calcifications are also present. IMPRESSION: Diffuse soft tissue swelling of the visualized right lower extremity but no joint effusion or acute bony abnormality. Location: [facility] at 1442 Reported and signed by: Steffen kim MD CC: Gene Esposito MD Technologist: JIMMIE ERICKSON RT(R) Trnscrd Da te/Time/By: 06/13/2019 (8642) : By: [email or web address] Orig Print D/T: S: 06/13 (0113) PAGE 1 Signed Report - XR CHEST 1 [id number] 14:42:00 FAX: Gene Esposito MD [phone] [place]: St: REG Name: MEDINA DODD [facility] : [birth year] Age/S: 64/M [address] [facility] Unit #: [id number] Loc: [place], [place] [address] Phys: Gene Esposito MD Acct: [id number] Dis Date: Status: REG ER PHONE #: [phone] Exam Date: 06/13/2019 1430 FAX #: [phone] Reason: CODE SEPSIS EXAMS: CPT CODE: [id number] XR CHEST 1 V [id number] REASON FOR EXAM: CODE SEPSIS Exam Order Date: 06/13/2019 2:08 PM Ordering M.D.: Gene Esposito MD PROCEDURE: - XR CHEST 1 V COMPARI SON: None FINDINGS: The lungs are clear. There is no pleu ral effusion or pneumothorax. Pulmonary vascularity is within normal limit s. Cardiomediastinal silhouette is normal in size for technique. T he mediastinal contours are within normal limits. Musculoske letal structures are within normal limits. The visualized upper ab domen is within normal limits. IMPRESSION: No ac amarjit cardiopulmonary process. Location: [facility] Electro nically Signed by Steffen Miller MD on 06/13/2019 at 1442 R eported and signed by: Steffen Miller MD CC: Gene Esposito MD Technologist: JIMMIE ERICKSON RT(R) Trnscrd Date/Time/By: 06/13/2019 (6600) : By: [email or web address] Orig Print D/T: S: 06/13/2019 (5628) PAGE 1 Signed Report CBC W/AUTO [id number] 14:33:00* Test Item Value Reference Range Interpretation Comments WHITE BLOOD CELL (test code = WBC) 14.2 K/mm3 4.5-12.5 H RED BLOOD CELL (test code = RBC) 4.01 mill/mm3 4.0-5.8 N HEMOGLOBIN (test code = HGB) 11.0 gram/dL 13.0-17.5 L HEMATOCRIT (test code = HCT) 35.9 % 42.0-52.0 L MEAN CELL VOLUME (test code = MCV) 89.5 fL 80-98 N MEAN CELL HGB (test code = MCH) 27.4 picogram 27.0-33.0 N MEAN CELL HGB CONCETRATION (test code = MCHC) 30.6 gram/dL 33.0-36. 0 L RED CELL DISTRIBUTION WIDTH (test code = RDW) 13.3 % 11.6-16. 2 N RED CELL DISTRIBUTION WIDTH SD (test code = RDW-SD) 44.3 fL 37 .0-51.0 N PLATELET COUNT (test code = PLT) 300 K/mm3 150-450 N MEAN PLATELET VOLUME (test code = MPV) 9.2 fL 6.7-11.0 N NEUTROPHIL % (test code = NT%) 63.0 % 39.0-69.0 N IMMATURE GRANULOCYTE % (test code = IG%) 0.5 % 0.0-5.0 N LYMPHOCYTE % (test code = LY%) 23.5 % 25.0-55.0 L MONOCYTE % (test code = MO%) 10.2 % 0.0-10.0 H EOSINOPHIL % (test code = EO%) 2.2 % 0.0-5.0 N BASOPHIL % (test code = BA%) 0.6 % 0.0-1.0 N NUCLEATED RBC % (test code = NRBC%) 0.0 % 0-0 N NEUTROPHIL # (test code = NT#) 8.97 K/mm3 1.8-7.7 H IMMATURE GRANULOCYTE # (test code = IG#) 0.07 x10 3/uL 0-0.03 H LYMPHOCYTE # (test code = LY#) 3.34 K/mm3 1.0-5.0 N MONOCYTE # (test code = MO#) 1.45 K/mm3 0-0.8 H EOSINOPHIL # (test code = EO#) 0.32 K/mm3 0.0-0.5 N BASOPHIL # (test code = BA#) 0.08 K/mm3 0.0-0.2 N NUCLEATED RBC # (test code = NRBC#) 0.00 K/mm3 0.0-0.1 N
[2019-12-15 15:39] LABS: BASOPHILS % 0.1 % (0.0-1.0); EOSINOPHILS % 0.3 % (0.0-6.0); HEMATOCRIT 26.5 % (38.2-49.6); HEMOGLOBIN 8.1 g/dL (14.0-18.0); LYMPHOCYTES # (AUTO) 1.9 (1.0-3.2); LYMPHOCYTES % 12.6 % (18.0-39.1); MEAN CORPUSCULAR HEMOGLOBIN 24.3 pg (28-32); MEAN CORPUSCULAR HGB CONC 30.6 g/dL (31-35); MEAN CORPUSCULAR VOLUME 79.6 fL (81-99); MONOCYTES # (AUTO) 0.8 (0.2-0.8); MONOCYTES % 5.5 % (4.4-11.3); NEUTROPHILS # (AUTO) 12.3 (2.1-6.9); NEUTROPHILS % 80.6 % (38.7-80.0); PLATELET COUNT 291 x10e3/uL (140-360); RED BLOOD COUNT 3.33 x10e6/uL (4.3-5.7); RED CELL DISTRIBUTION WIDTH 19.7 % (11.7-14.4)
[2019-12-15 16:02] LABS: ALANINE AMINOTRANSFERASE 38 IU/L (0-55); ALBUMIN 2.5 g/dL (3.5-5.0); ALBUMIN/GLOBULIN RATIO 0.6 (0.8-2.0); ALKALINE PHOSPHATASE 1044 IU/L (40-150); ANION GAP 21.6 mmol/L (8-16); BLOOD UREA NITROGEN 13 mg/dL (7-26); BUN/CREATININE RATIO 14 (6-25); CALCIUM 8.1 mg/dL (8.4-10.2); CARBON DIOXIDE 23 mmol/L (22-29); CHLORIDE 97 mmol/L (98-107); CREATININE, SERUM 0.96 mg/dL (0.72-1.25); EST GLOMERULAR FILTRATION RATE > 60 ML/MIN (60-); GLUCOSE 95 mg/dL (74-118); SODIUM 139 mmol/L (136-145)
--- OUTSIDE RECORDS SUMMARY | 2019-12-15 16:03 | XMS REPORT | Continuity of Care Document ---
Author Author [facility] Organization [facility] Address [address] [place] [address] Phone Unavailable Care Team Providers Care [place] Worker Name Role Phone Unavailable Unavailable Payers Payer Name Policy Type Policy Number Effective Date Expiration Date S ource Problems This patient has no known problems. Allergies, Adverse Reactions, Alerts Allergy Name Allergy Type Status Severity Reaction(s) Onset Date Inacti ve Date Treating Clinician Comments Source doxycycline DA Active IA 2019-06-17 00:00:00 [facility] No Known Allergies DA Active U 2019-06-13 00:00:00 [facility] Medications This patient has no known [...] CA) 8.2 mg/dL 8.5-10.1 L BASIC METABOLIC [id number] 03:22:00* Test Item Value Reference Range Interpretation [...] code = CA) mg/dL 8.5-10.1 CBC W/AUTO [id number] 02:47:00* Test Item Value Reference Range Interpretation [...] = MDIFF) NO - XR CHEST 1 [id number] 18:13:00 FAX: Idris Collazo II, MD [place]: [address]: ADM Name: MEDINA DODD [facility] : [birth year] Age/S: 64/M [address] [facility] Unit #: [id number] Loc: VPablo30[address] [place] [address] Phys: Idris Collazo II, MD Acct: [id number] Dis Date: Status: ADM IN PHONE #: [phone] Exam Date: 06/17/2019 1800 FAX #: [phone] Reason: FEVER, DYSPNEA EXAMS: CPT CODE: [id number] XR CHEST 1 V 17155 REASON FOR EXAM: FEVER, DY SPNEA Exam [...] appreciable change from the prior exam. Location: [facility] Electronically Signed by Steffen Miller MD on 06/17 at 1813 Reported and signed by: Steffen Miller MD CC: Idris Collazo II, MD Technologist: ABBEY MAHER RT (R) Trnscrd Date/Time/By: 06/17 (1812) : By: [email or web address] [facility] Print D/T: S: 06/17/2019 (1815) PAGE 1 Signed Report BASIC METABOLIC [id number] 02:19:00* Test Item Value Reference Range Interpretation [...] CA) 7.8 mg/dL 8.5-10.1 L BASIC METABOLIC [id number] 02:14:00* Test Item Value Reference Range Interpretation [...] code = CA) mg/dL 8.5-10.1 CBC W/AUTO [id number] 01:59:00* Test Item Value Reference Range Interpretation [...] = MDIFF) NO - MRI L-SPINE W/O [id number] 18:31:00 FAX: Idris Collazo II, MD [place]: B St: ADM FAX: Daja Goff MD [phone] Name: MEDINA WARD [facility] : 1955 Age/S: 64/M [address] [facility] Unit #: [id number] Loc: V[address] [place] [address] Phys: Idris Collazo II, MD Acct: [id number] Dis Date: Status: ADM IN PHONE #: [phone] Exam Date: 06/16/2019 7149 FAX #: [phone] Reason: acute rle weakness, r/o radiculopathy EXAMS: CPT CODE: [id number] MRI L-SPINE W/O CONT 75557 HISTORY: acute rle weakness, r/o radiculopathy TECHNIQUE: [...] prospectively. Correla te clinically for radiculopathy. Location: [facility] PAGE 1 Signed Report (CONTINUED) FAX: Idris Walls II, MD [place]: St: [facility] FAX: Adeline Goff MD [phone] Name: MEDINA WARD [facility] : 1955 Age/S: 64/M [address] [facility] Unit #: [id number] Loc: [address] [place] [address] Phys: Idris Collazo II, MD Acct: [id number] Dis Date: Status: ADM IN PHONE #: [phone] Exam Date: 06/16/2019 1615 FAX #: [phone] Reason: acute rle weakness, r/o radiculopathy EXAMS: CPT CODE: [id number] MRI L-SPINE W/O CONT 68750 < Continued> at 1831 Reported and signed by: Steffen Miller MD CC: Idris Collazo II, MD; Daja Goff MD Technologist: RT MARIIA - MRI [facility] Date/Time/By: 06/16/2019 (1830) : By: [email or web address] Orig Print D/T: S: 06/16/2019 (1833) PAGE 2 Signed Report - MRI LOW EXT W/O CONT [id number] 18:25:00 FAX: Eunice Ruiz [facility] [phone] [place]: St: ADM FAX: Daja Goff MD [phone] Name[facility] 1955 Age/S: 64/M [address] Unit #: [id number] Loc: V.[address] [place] [address] Phys: Eunice Hernandez DPM Acct: [id number] Dis Date: Status: ADM IN PHONE #: [phone] Exam Date: 06/16/2019 1640 FAX #: [phone] Reason: ++ edema abscess?? EXAMS: CPT CODE: [id number] MRI LOW EXT W/[place] [address] HISTORY: Cellulitis TECHNIQUE: Sagittal T1, sagittal STIR, [...] and no findings to suggest abscess. Location: [facility] at 1825 Reported and signed by: Steffen Miller MD CC: Eunice Hernandez DPM; Daja Goff MD Technologist: ISAÍAS MERRITTRT - MRI Trnscrd Da te/Time/By: 06/16/2019 (1824) : By: [email or web address] Orig Print D/T: S: 06/16 (1827) PAGE 1 Signed Report [id number] 14:40:00* Test Item Value Reference Range Interpretation Comments VANCOMYCIN (test code = VANCO) 15.9 UG/ML 5.0-45.0 N BASIC METABOLIC [id number] 06:05:00* Test Item Value Reference Range Interpretation [...] CA) 9.2 mg/dL 8.5-10.1 N BASIC METABOLIC [id number] 06:00:00* Test Item Value Reference Range Interpretation [...] code = CA) mg/dL 8.5-10.1 CBC W/AUTO [id number] 05:37:00* Test Item Value Reference Range Interpretation [...] NO - XR HIP W/PEL UNI 2+V [id number] 15:52:00 FAX: Osvaldo Cho MD [phone] [place]: St: [facility] FAX: Daja Goff MD [phone] Name: MEDINA WARD [facility] : 1955 Age/S: 64/M [address] [facility] Unit #: [id number] Loc: [address] [address] Phys: Daja Goff MD Acct: [id number] Dis Date: Status: ADM IN PHONE #: [phone] Exam Date: 06/14/2019 1533 FAX #: [phone] Reason: pain EXAMS: CPT CODE: [id number] XR HIP W/PEL UNI 2+[place] [address] HISTORY: pain EXAM: AP pelvis as well [...] and signed by: Steffen Miller MD CC: Osvaldo Cho MD; Daja Argueta MD Technologist: Kiara Akbar RT(R); Natasha Chambers(R) Trnscrd Date/Time/By: 06/14/2019 (1552) : By: [email or web address] Orig Print D/T: S: 06/14/2019 (5301) PAGE 1 Signed Report [id number] 13:34:00* Test Item Value Reference Range Interpretation Comments GLYCOSYLATED HEMOGLOBIN (HA1C) (test code = GLYHGB) 5.6 % HbA1 SUGGESTED DIAGNOSIS: HbA1C (%) Diabetic >6.4Prediabetes 5.7 - 6.4Normal <5.7 ESTIMATED AVERAGE GLUCOSE (test code = EAG) 114 MG/DL CBC W/O [id number] 13:16:00* Test Item Value Reference Range Interpretation [...] MPV) 9.2 fL 6.7-11.0 N BASIC METABOLIC [id number] 06:54:00* Test Item Value Reference Range Interpretation [...] code = FESAT) 9.66 % 13-45 L [id number] 06:54:00* Test Item Value Reference Range Interpretation Comments FERRITIN (test code = KAUSHAL) 30 ng/mL 8-388 N BASIC METABOLIC [id number] 06:02:00* Test Item Value Reference Range Interpretation [...] SATURATION (test code = FESAT) % 13-45 [id number] 06:02:00* Test Item Value Reference Range Interpretation Comments FERRITIN (test code = KAUSHAL) ng/mL 8-388 BASIC METABOLIC [id number] 05:59:00* Test Item Value Reference Range Interpretation [...] SATURATION (test code = FESAT) % 13-45 [id number] 05:59:00* Test Item Value Reference Range Interpretation Comments FERRITIN (test code = KAUSHAL) ng/mL 8-388 URINALYSIS [id number] 19:22:00* Test Item Value Reference Range Interpretation [...] per HPF NONE Urine Source? Clean CatchURINALYSIS [id number] 19:22:00* Test Item Value Reference Range Interpretation [...] SEEN #/HPF NONE Urine Source? Clean CatchLACTIC [id number] 18:47:00* Test Item Value Reference Range Interpretation Comments LACTIC ACID (test code = LACT) 1.2 mmol/L 0.4-1.9 N B-TYPE NATRIURETIC [id number] 15:33:00* Test Item Value Reference Range Interpretation Comments B-TYPE NATRIURETIC PEPTIDE (test code = BNP) 31.92 pgram/mL 0-100 N PROTHROMBIN [id number] 15:28:00* Test Item Value Reference Range Interpretation [...] (2.5-3.5) IS PATIENT ON ANTICOAGULANTS? NTHROMBOPLASTIN TIME [id number] 15:28:00* Test Item Value Reference Range Interpretation Comments THROMBOPLASTIN TIME PARTIAL (test code = PTT) 34.0 seconds 25.0-36. 5 N IS PATIENT ON ANTICOAGULANTS? NLACTIC [id number] 15:25:00* Test Item Value Reference Range Interpretation Comments LACTIC ACID (test code = LACT) 2.4 mmol/L 0.4-1.9 HH Results called to DR ESPOSITO by [email or web address] 06/13/19 1525Critical results verified and read back by Nurse? Y BASIC METABOLIC [id number] 15:08:00* Test Item Value Reference Range Interpretation [...] CA) 9.0 mg/dL 8.5-10.1 N HEPATIC FUNCTION [id number] 15:08:00* Test Item Value Reference Range Interpretation [...] reference range due to change in reagent. [id number] 15:08:00* Test Item Value Reference Range Interpretation Comments TROPONIN-I (test code = TROPI) <0.015 ng/mL 0-0.045 N BASIC METABOLIC [id number] 14:58:00* Test Item Value Reference Range Interpretation [...] code = CA) mg/dL 8.5-10.1 HEPATIC FUNCTION [id number] 14:58:00* Test Item Value Reference Range Interpretation [...] TOTAL (test code = ALKP) IUnit/L 45-117 [id number] 14:58:00* Test Item Value Reference Range Interpretation Comments TROPONIN-I (test code = TROPI) ng/mL 0-0.045 - XR ANKLE 3 + V [id number] 14:42:00 FAX: Gene Esposito MD [phone] [place]: B St: REG Name: MEDINA DODD [facility] : [birth year] Age/S: 64/M [address] [facility] Unit #: [id number] Loc: [place] [address] Phys: Gene Esposito MD Acct: [id number] Dis Date: Status: REG ER PHONE #: [phone] Exam Date: 06/13/2019 1430 FAX #: [phone] Reason: leg swelling redness EXAMS: CPT CODE: [id number] XR ANKLE 3 + V RT [id number] CLINICAL HISTORY: leg swelling red ness TECHNIQUE: [...] joint effusion or acute bony abnormality. Location: [facility] at 1442 Reported and signed by: Steffen kim MD CC: Gene Esposito MD Technologist: JIMMIE ERICKSON RT(R) Trnscrd Da te/Time/By: 06/13/2019 (2355) : By: [email or web address] Orig Print D/T: S: 06/13 (9820) PAGE 1 Signed Report - XR FOOT 3 + V [id number] 14:42:00 FAX: Gene Esposito MD [phone] [place]: St: REG Name: MEDINA DODD [facility] : [birth year] Age/S: 64/M [address] [facility] Unit #: [id number] Loc: [place] [address] Phys: Gene Esposito MD Acct: [id number] Dis Date: Status: REG ER PHONE #: [phone] Exam Date: 06/13/2019 1430 FAX #: [phone] Reason: leg swelling redness EXAMS: CPT CODE: [id number] XR FOOT 3 + V RT [address]135 CLINICAL HISTORY: leg swelling red ness TECHNIQUE: [...] joint effusion or acute bony abnormality. Location: [facility] at 1442 Reported and signed by: Steffen kim MD CC: Gene Esposito MD Technologist: JIMMIE ERICKSON RT(R) Trnscrd Da te/Time/By: 06/13/2019 (7995) : By: [email or web address] Orig Print D/T: S: 06/13 (0819) PAGE 1 Signed Report - XR TIBIA/FIBULA 2 V [id number] 14:42:00 FAX: Gene Espoisto MD [phone] [place]: St: REG Name: MEDINA DODD [facility] : [birth year] Age/S: 64/M [address] [facility] Unit #: [id number] Loc: [place] [address] Phys: Gene Esposito MD Acct: [id number] Dis Date: Status: REG ER PHONE #: [phone] Exam Date: 06/13/2019 1430 FAX #: [phone] Reason: leg swelling redness EXAMS: CPT CODE: [id number] XR TIBIA/FIBULA [address] [place] [address] CLINICAL HISTORY: leg swelling red ness TECHNIQUE: [...] joint effusion or acute bony abnormality. Location: [facility] at 1442 Reported and signed by: Steffen kim MD CC: Gene Esposito MD Technologist: JIMMIE ERICKSON RT(R) Trnscrd Da te/Time/By: 06/13/2019 (7881) : By: [email or web address] Orig Print D/T: S: 06/13 (0112) PAGE 1 Signed Report - XR CHEST 1 [id number] 14:42:00 FAX: Gene Esposito MD [phone] [place]: St: REG Name: MEDINA DODD [facility] : [birth year] Age/S: 64/M [address] [facility] Unit #: [id number] Loc: [place], [place] [address] Phys: Gene Esposito MD Acct: [id number] Dis Date: Status: REG ER PHONE #: [phone] Exam Date: 06/13/2019 1430 FAX #: [phone] Reason: CODE SEPSIS EXAMS: CPT CODE: [id number] XR CHEST 1 V 33863 REASON FOR EXAM: CODE SEPSIS Exam Order [...] IMPRESSION: No ac amarjit cardiopulmonary process. Location: [facility] Electro nically Signed by Steffen Miller MD on 06/13/2019 at 1442 R eported and signed by: Steffen Miller MD CC: Gene Esposito MD Technologist: JIMMIE ERICKSON RT(R) Trnscrd Date/Time/By: 06/13/2019 (3659) : By: [email or web address] Orig Print D/T: S: 06/13/2019 (5814) PAGE 1 Signed Report CBC W/AUTO [id number] 14:33:00* Test Item Value Reference Range Interpretation [...]
[2019-12-15 16:07] LABS: POTASSIUM 2.6 mmol/L (3.5-5.1)
[2019-12-15] MEDS ORDERED: POTASSIUM CHLORIDE 20 MEQ TAB CR PO STA (16:27)
[2019-12-15] MEDS ORDERED: POTASSIUM CHLORIDE 20 MEQ TAB CR PO ONE (16:28)
[2019-12-15 16:43] LABS: CLARITY,URINE CLEAR (CLEAR); COLOR,URINE YELLOW (YELLOW); KETONES,URINE NEGATIVE (NEGATIVE); LEUKOCYTE ESTERASE ,URINE NEGATIVE (NEGATIVE); NITRITE,URINE NEGATIVE (NEGATIVE); PROTEIN,URINE DIPSTICK NEGATIVE (NEGATIVE)
[2019-12-15 16:44] LABS: BILIRUBIN,URINE SMALL (NEGATIVE); URINE UROBILINOGEN 1 mg/dL (0.2 - 1)
[2019-12-15 16:53] LABS: BACTERIA,URINE MODERATE /HPF; EPITHELIAL CELLS,URINE MODERATE /LPF
[2019-12-15 17:52] VITALS: BP 136/74
[2019-12-15] MEDS ORDERED: LASIX20 MG PO (18:03)
[2019-12-15] MEDS ORDERED: ACETAMINOPHEN650 M1 PO (18:03)
[2019-12-15 18:04] VITALS: BP 136/74
[2019-12-15 18:21] VITALS: BP 136/74
[2019-12-15 20:40] VITALS: BP 113/66
[2019-12-15 21:00] VITALS: BP 113/66
[2019-12-15] MEDS ORDERED: BISACODYL 5 MG TAB EC PO ONE (23:30)
[2019-12-15 23:53] VITALS: BP 119/71
[2019-12-16] VITALS (7 sets, daily range): BP systolic 110–142; BP diastolic 53–129
[2019-12-16] MEDS ORDERED: BISACODYL 5 MG TAB EC PO ONE (00:45)
[2019-12-16 00:58] LABS: FERRITIN 38.16 ng/mL (21.81-274.66)
[2019-12-16] MEDS ORDERED: POTASSIUM CHLORIDE 20MEQ/100ML 100 ML IV ONE ×2 (01:30→03:30)
[2019-12-16] MEDS ORDERED: POTASSIUM CHLORIDE 20 MEQ TAB CR PO STA ×2 (01:35→23:39)
[2019-12-16] MEDS: PANTOPRAZOLE 40 MG 10ML VIAL IV SCH ×3 (01:52→17:00)
[2019-12-16] MEDS ORDERED: POTASSIUM CHLORIDE 20 MEQ TAB CR PO ONE (03:30)
[2019-12-16] MEDS: CITRATE OF MAGNESIA 300ML BOTTLE PO ONE ×2 (05:25→07:41)
[2019-12-16] MEDS ORDERED: SODIUM CHLORIDE 0.9% 1000ML 1,000 ML IV STA ×2 (06:05)
[2019-12-16] MEDS ORDERED: SODIUM CHLORIDE 0.9% 1000ML 2,000 ML ONE (06:14)
[2019-12-16] MEDS ORDERED: PIPER-TAZ 3.375 GM 50 ML ONE (06:16)
[2019-12-16] MEDS ORDERED: VANCOMYCIN 1GM/NS 250 ML 250 ML ONE (06:26)
[2019-12-16] MEDS ORDERED: PIPER-TAZ 3.375 GM 50 ML IV STA (06:29)
[2019-12-16] MEDS ORDERED: VANCOMYCIN 1GM/NS 250 ML 250 ML IV ONE ×2 (06:30→18:00)
[2019-12-16 06:37] LABS: BASOPHILS % 0.2 % (0.0-1.0); EOSINOPHILS % 0.2 % (0.0-6.0); HEMATOCRIT 30.6 % (38.2-49.6); HEMOGLOBIN 8.6 g/dL (14.0-18.0); LYMPHOCYTES # (AUTO) 1.9 (1.0-3.2); LYMPHOCYTES % 12.2 % (18.0-39.1); MEAN CORPUSCULAR HEMOGLOBIN 23.8 pg (28-32); MEAN CORPUSCULAR HGB CONC 28.1 g/dL (31-35); MONOCYTES # (AUTO) 0.7 (0.2-0.8); MONOCYTES % 4.3 % (4.4-11.3); NEUTROPHILS # (AUTO) 13.1 (2.1-6.9); NEUTROPHILS % 82.2 % (38.7-80.0); PLATELET COUNT 329 x10e3/uL (140-360); RED BLOOD COUNT 3.62 x10e6/uL (4.3-5.7); RED CELL DISTRIBUTION WIDTH 19.9 % (11.7-14.4)
[2019-12-16] MEDS ORDERED: SODIUM CHLORIDE 0.9% 1000ML 1,000 ML IV SCH ×2 (06:45→07:00)
[2019-12-16 06:49] LABS: MEAN CORPUSCULAR VOLUME 84.5 fL (81-99)
[2019-12-16 07:00] LABS: ALANINE AMINOTRANSFERASE 38 IU/L (0-55); ALBUMIN 2.6 g/dL (3.5-5.0); ALBUMIN/GLOBULIN RATIO 0.6 (0.8-2.0); ALKALINE PHOSPHATASE 1055 IU/L (40-150); ANION GAP 30.8 mmol/L (8-16); BLOOD UREA NITROGEN 16 mg/dL (7-26); BUN/CREATININE RATIO 14 (6-25); CALCIUM 8.7 mg/dL (8.4-10.2); CARBON DIOXIDE 14 mmol/L (22-29); CHLORIDE 102 mmol/L (98-107); CREATINE KINASE 54 IU/L (30-200); CREATININE, SERUM 1.13 mg/dL (0.72-1.25); EST GLOMERULAR FILTRATION RATE > 60 ML/MIN (60-); GLUCOSE 130 mg/dL (74-118); POTASSIUM 3.8 mmol/L (3.5-5.1); SODIUM 143 mmol/L (136-145)
[2019-12-16] MEDS ORDERED: CITRATE OF MAGNESIA 300ML BOTTLE PO ONE (07:00)
[2019-12-16] MEDS ORDERED: METOPROLOL TARTRATE INJ 1 MG/ML VIAL IV SCH (07:15)
[2019-12-16 07:54] LABS: BAND NEUTROPHILS % (MANUAL) 1 %; LYMPHOCYTES % (MANUAL) 16 % (19-48); METAMYELOCYTES % (MANUAL) 2 % (0-0); MONOCYTES % (MANUAL) 2 % (3.4-9.0); NEUTROPHILS % (MANUAL) 77 % (40-74); NUCLEATED RED BLOOD CELLS 1; PROMYELOCYTES % (MANUAL) 1 % (0-0)
[2019-12-16 07:55] LABS: B-TYPE NATRIURETIC PEPTIDE2 168.2 pg/mL (0-100)
[2019-12-16 07:56] LABS: HYPOCHROMASIA MODERATE
[2019-12-16 07:57] LABS: ANISOCYTOSIS SLIG; MICROCYTOSIS SLIG; PLATELET ESTIMATE ADEQUATE; PLATELET MORPHOLOGY COMMENT FEW LARGE; POIKILOCYTOSIS SLIGHT; RBC MORPHOLOGY COMMENT NORMAL; STOMATOCYTES SLIGHT; TARGET CELLS FEW; TEAR DROP CELLS FEW
[2019-12-16 08:13] LABS: INR 1.62; PARTIAL THROMBOPLASTIN TIME 32.4 seconds (23.8-35.5); PROTHROMBIN TIME 20.2 seconds (11.9-14.5)
[2019-12-16] MEDS ORDERED: POTASSIUM CHLORIDE 20 MEQ TAB CR PO SCH (08:30)
[2019-12-16] MEDS: IRON SUCROSE 100 MG in SODIUM CHLORIDE 0.9% 100 ML 100 ML IV SCH (08:32)
[2019-12-16 08:40] LABS: FREE THYROXINE INDEX 1.9643 (1.4-3.8); THYROID STIMULATING HORMONE 3.244 uIU/mL (0.350-4.940)
--- NOTE | 2019-12-16 08:52 | Diagnostic Imaging Report ---
EXAMINATION: CHEST SINGLE (PORTABLE) INDICATION: Pulmonary edema COMPARISON: None FINDINGS: LINES/TUBES:EKG leads overlie the chest. LUNGS:The lungs are moderately inflated. Mild biapical pleural parenchymal thickening/scarring. No focal consolidation or airspace edema. PLEURA:No pleural effusion or pneumothorax. MEDIASTINUM:The cardiomediastinal silhouette appears normal in size and shape. BONES/SOFT TISSUES:No acute osseous injury. ABDOMEN:No free air under the diaphragm. IMPRESSION: No focal pneumonia or pulmonary edema. Signed by: Kristel Ram MD on 12/16/2019 8:48 AM
[2019-12-16] MEDS ORDERED: PANTOPRAZOLE 40 MG 10ML VIAL IV SCH (09:00)
[2019-12-16] MEDS: HEPARIN SOD (PORCINE) 5,000 UNIT/ML VIAL SC SCH ×2 (09:00→22:04)
--- NOTE | 2019-12-16 09:55 | Consultation ---
DATE OF CONSULTATION: 12/16/2019 Pulmonary Critical Care Consult PRIMARY CARE PHYSICIAN: Dmitriy Ramires MD. REASON FOR CONSULT: Stat consult for tachyarrhythmia, measured electrolyte abnormality with potassium 9.0 reported, EKG two leads strip 190 beats per minute. HISTORY OF PRESENT ILLNESS: The patient is a pleasant 64-year-old gentleman with above findings. The patient was admitted to [facility] on December 15, 2019, where he had evident 3 to 4+ bilateral lower extremity edema that was evolving. The patient furthermore had abdominal pain. Onset about 2 weeks ago. On December 11, 2019, the patient with CT abdomen with multiple masses in the liver up to 9 cm in size consistent with metastases, possible gallbladder wall thickening. The patient was hospitalized with mildly elevated LFTs, but a serum bicarbonate of 14. Laboratory includes alkaline phosphatase 1044, minimally elevated AST, albumin 2.5, BNP 136, potassium 2.6 on admit. Urinalysis without neil white blood cell elevation. During the night, the patient had significant potassium replacement, but so far the venous chemistry shows potassium 3.8. However, the VBG showed 9.0 potassium. Of note, VBG; 7.29/39.9/35, oxygen venous saturation 61%. The patient also lactic acid 14.6. The telemetry had a possible tachyarrhythmia, although there is so much artifact and the patient had sick and chills. I am consulted. PAST MEDICAL HISTORY: BPH. MEDICATIONS: Medication list reviewed per the chart record. ALLERGIES: NO KNOWN DRUG ALLERGIES. SOCIAL HISTORY: No smoking. No drugs. The patient transiently drink alcohol, but he denies a little lot. FAMILY HISTORY: Noncontributory. REVIEW OF SYSTEMS: GENERAL: No weight changes. OPHTHALMOLOGIC: No floaters. ENT: No mouth ulcers. ENDOCRINE: No known thyroid disease. PULMONARY: No asthma. CARDIAC: No heart attack. GI: He denies diarrhea. No nausea. No emesis. MUSCULOSKELETAL: Mild arthritis. NEUROLOGIC: No seizures. PSYCHOLOGIC: No depression. PHYSICAL EXAMINATION: VITAL SIGNS: Afebrile, vital signs noted, reviewed per the chart record. The patient recently recorded with 100% oxygen saturation on room air. Now repeat EKG done without artifact showing heart rate 102 beats per minute. GENERAL: Calmer in bed compared to reported recent findings. He does look a little bit anxious. HEENT: Normocephalic and atraumatic. NECK: Supple. Throat midline. LUNGS: Bilateral air entry, limited, but no neil wheezes. CARDIOVASCULAR: S1 and S2. No murmurs, rubs, or gallops. ABDOMEN: Nonspecific abdominal pain, especially in lower quadrant, but the patient states it is not far from his baseline. EXTREMITIES: No clubbing. No cyanosis. There is 4+ edema. INTEGUMENT: No rash. No purpura. LABORATORY DATA: 60 white count, 31 hematocrit, and 329 platelets. 3.8 potassium, 14 bicarbonate, 16 BUN, and 1.13 creatinine. Glucose 130. Lactic acid 14.6. Calcium 8.7. Magnesium 1.8. Total bilirubin 1.2. AST 75, ALT 38, alkaline phosphatase 1055, and 2.6 albumin. Globulin 4.4. Vitamin B12 is 721. Inpatient imaging is pending. IMPRESSION AND PLAN: 1. Suggested sepsis, lactic acid 14.6 with a borderline venous oxygen saturation of 61%. More likely obstructive cholangiopathy, rule out other. 2. Lower abdominal pain, rule out colonic/mesenteric sepsis. For now, treat as colitis. 3. Possible tachyarrhythmia, although I favor artifact superimposed as predominant condition based on the new EKG and there are different complexes probably QRS complexes hidden with this "ventricular tachycardia.". 4. Critical hypokalemia, now better. 5. Reported multiple liver masses up to 9 cm per note. 6. Suggested colon cancer, clinical. 7. 4+ leg edema, possible portal hypertension or other obstructive vasculopathy, rule out other. 8. Possible congestive heart failure. 9. Moderate anemia. 10. Moderate hypoalbuminemia. 11. Medical history benign prostatic hyperplasia. At this time, give a little bit more potassium if we confirm remains low normal. Cardiology was already consulted, but for now, possible arrhythmia has subdued. We will prevent the patient from going on dry fluid status, but we will decide on a fluid of mild IV fluid positivity balance versus keeping an euvolemic intravascular volume noting the patient already has lot of edema to legs. Check echo to rule out congestive heart failure. For now, QRS duration on EKG is 68 milliseconds hopefully goes again congestive heart failure. GI consulted and is evaluating regarding need for endoscopy. Continue aggressive antibiotics in the interim for suspected GI sepsis. Guarded prognosis will be based on the finding of any targets for intervention, if indeed the patient has lot of masses and on consideration of pathology and diagnosis. The COVID-19 test is pending, which will be important as well. Check TSH level, coagulation times, and serial labs. Thank you very much for this consult, Dr. Corrales and Dr. Dmitriy Ramires. Please call for questions. I spent greater than 30 minutes in direct care and coordination on this date. He came to bedside on emergent basis. MD MEGAN Pérez/GENE /[id number]
[2019-12-16] MEDS: PIPER-TAZ 3.375 GM 50 ML IV SCH ×2 (10:59→17:42)
[2019-12-16] MEDS ORDERED: IOPAMIDOL 370 MG/ML 200 ML INFUS..BTL INJ ONE (11:20)
[2019-12-16] MEDS ORDERED: PIPER-TAZ 3.375 GM 50 ML IV ONE (12:00)
--- NOTE | 2019-12-16 12:55 | Consultation ---
DATE OF CONSULTATION: REQUESTING PHYSICIAN: Christiano Corrales MD Thank you for this consultation. HISTORY OF PRESENT ILLNESS: This is a 64-year-old male who has past medical history of BPH, came in to [facility] on December 14 because of swelling in both the lower extremities along with abdominal pain. Symptoms apparently had been going on for the past 2 weeks. Recently had his CT scan of the abdomen done on December 10, which showed multiple masses in the liver up to 9 cm in size, consistent with metastasis along with gallbladder wall thickening. The patient was evaluated in the emergency room, blood pressure was stable, but noted to have severe lactic acidosis with lactic acid level of 14.6. The patient received fluid resuscitation, other abnormalities include elevated alkaline phosphatase, mild elevation of transaminase level. The patient has been received fluid resuscitation, repeat lactic acid level was still pending. Urinalysis is negative. COVID-19 test is still pending. Chest x-ray reveals no focal pneumonia. Abdominal ultrasound is pending. REVIEW OF SYSTEMS: HEENT: Denies any headaches, visual complaints, sinus congestion, ear ache, throat pain, or neck pain. RESPIRATORY: No cough or shortness of breath. CARDIOVASCULAR: No chest pain or palpitations. GI: As above. : No urinary symptoms. GENERAL: Has had chills. PAST MEDICAL HISTORY: BPH. PAST SURGICAL HISTORY: None. ALLERGIES: NO KNOWN DRUG ALLERGIES. MEDICATIONS: Chronic medications are reviewed. FAMILY HISTORY: Noncontributory. SOCIAL HISTORY: No active alcohol, tobacco or drug use. PHYSICAL EXAMINATION: VITAL SIGNS: Temperature 96, respiratory rate 20, blood pressure 121/70. HEENT: Normocephalic, atraumatic. Extraocular movements not assessed. NECK: Supple. LUNGS: Fair air entry bilaterally. Clear to auscultation. HEART: Sounds S1, S2. No murmur. No gallop. ABDOMEN: Soft, nontender. Normoactive bowel sounds. EXTREMITIES: There is no cyanosis, clubbing. There is 3+ lower extremity edema. LABORATORY DATA: Labs reveal WBC count of 15.9, hemoglobin 8.6, and platelets 329. BUN 14, creatinine 0.1, AST 75, ALT 38, and alkaline phosphatase 1055. Blood cultures are pending. ASSESSMENT: This is a 64-year-old male with: 1. Abdominal pain. 2. Severe lactic acidosis with possibility of sepsis related versus volume contraction versus intraabdominal pathology such as bowel ischemia. 3. Leukocytosis. 4. Edema lower extremity. RECOMMENDATIONS: Antibiotic regimen of Zosyn to continue. Cultures are pending. Repeat antibiotic regimen of Zosyn and vancomycin to continue. Followup cultures. Intraabdominal imaging with CAT scan may be required. We will continue to follow. Thank you, Dr. Corrales for this consultation. We will follow patient along with you. Multiple liver metastasis per note with the possibility of metastatic disease. Emir Griffin MD SR/MODL /[id number] cc: MD Christiano Rivera MD
--- NOTE | 2019-12-16 16:42 | Diagnostic Imaging Report ---
EXAM: Right upper quadrant abdominal ultrasound INDICATION: Elevated liver enzymes COMPARISON: None. TECHNIQUE: Transverse and longitudinal images of the right upper quadrant abdomen were obtained FINDINGS: Liver: Size: 19.9 cm in the right midclavicular line Appearance: Heterogeneous echogenicity, smooth contour Mass: Numerous heterogeneous masses throughout the right and left liver, the largest on the left measuring up to 8.2 x 7.3 x 9.1 cm. Gallbladder: Contracted gallbladder. No definite cholelithiasis or sonographic evidence of cholecystitis. Negative sonographic Vang's sign. Bile Ducts: Intrahepatic Ducts: No dilatation Extrahepatic Ducts: Common bile duct measures 3 mm Pancreas: Visualized portions of the pancreatic head, neck and proximal body are normal. Kidney: The right kidney measures 9.9 cm without evidence of hydronephrosis or stone. Vessels: Aorta: Visualized portions are normal Inferior Vena Cava: Visualized portions are normal Main Portal Vein: 0.9 cm, normal size with hepatopetal flow. Free Fluid: Trace perihepatic free fluid. IMPRESSION: Numerous heterogeneous masses throughout the right and left liver measuring up to 9.1 cm, concerning for metastatic disease. Signed by: Kristel Ram MD on 12/16/2019 4:38 PM
--- NOTE | 2019-12-16 16:54 | Diagnostic Imaging Report ---
EXAM: CT Abdomen and Pelvis WITH intravenous contrast INDICATION: Colon cancer COMPARISON: Abdominal ultrasound of earlier the same day TECHNIQUE: Abdomen and pelvis were scanned utilizing a multidetector helical scanner from the lung base to the pubic symphysis after administration of IV contrast. Coronal and sagittal reformations were obtained. Routine protocol was performed. Scan was performed during portal venous phase. IV CONTRAST: 100mL of Isovue 370 ORAL CONTRAST: Gastrografin RADIATION DOSE: Total DLP: 776 mGy*cm Dose modulation, iterative reconstruction, and/or weight based adjustment of the mA/kV was utilized to reduce the radiation dose to as low as reasonably achievable. FINDINGS: LINES: Right common femoral central venous catheter in place. LOWER THORAX: No focal lung base consolidation or pulmonary mass. HEPATOBILIARY: Numerous peripherally enhancing and centrally necrotic masses throughout the right and left liver. The largest of these is in the left liver and measures up to 7.9 x 7.4 x 9.8 cm. No biliary ductal dilation. The portal vein is patent. Decompressed gallbladder. SPLEEN: No splenomegaly. PANCREAS: No focal masses or ductal dilatation. ADRENALS: No adrenal nodules. KIDNEYS/URETERS: No hydronephrosis, renal calculi or solid renal mass lesion. 1.9 cm right renal cyst. PELVIC ORGANS/BLADDER: Unremarkable. PERITONEUM / RETROPERITONEUM: No free air or free fluid. Left greater than right pelvic retroperitoneal fat stranding. LYMPH NODES: Enlarged left pelvic sidewall lymph nodes measure up to 1.2 cm. VESSELS: Scattered atherosclerotic calcifications of the nonaneurysmal abdominal aorta and major branches. Replaced hepatic artery from the superior mesenteric artery. GI TRACT: 10 cm segment of rectosigmoid wall thickening with multiple areas of masslike wall thickening. No abnormal bowel thickening elsewhere. No bowel obstruction. BONES AND SOFT TISSUES: Age-indeterminate L2 compression fracture. Grade 1 anterolisthesis at L5-S1. Diffuse osteopenia and heterogeneity of bone marrow without focal lytic or blastic lesion definitive for osseous metastasis. IMPRESSION: 10 cm segment of rectosigmoid wall thickening with multiple areas of masslike wall thickening consistent with provided history of colon cancer. Adjacent enlarged left pelvic sidewall lymph nodes. Numerous peripherally enhancing and centrally necrotic masses throughout the right leg and left liver consistent with hepatic metastases. Age-indeterminate L2 compression fracture. No definite osseous metastatic disease. Signed by: Kristel Ram MD on 12/16/2019 4:51 PM
--- NOTE | 2019-12-16 23:57 | Consultation ---
DATE OF CONSULTATION: 12/16/2019 Cardiology Consultation REASON FOR CONSULTATION: Tachycardia and hypertension. HISTORY OF PRESENT ILLNESS: A 64-year-old man presents with complaints of increasing edema to lower extremities. On imaging studies, he was noted to have masses to the liver, for which he is undergoing evaluation for metastatic cancer. He reports a history of hypertension. He is noted to have elevated white count, anemia, metabolic acidosis, and abnormal LFTs. He has been initiated on diuretics with symptomatic improvement. This morning, he had an episode of sinus tachycardia with transient hypertension. Reportedly, he had wide-complex tachycardia on telemetry. Review of telemetry, particularly of strip in question reveals artifact and no wide- complex tachycardia. The patient, however, has been in sinus tachycardia and tremor artifact observed, both on EKG as well as telemetry. These are intermittent. He was administered 5 mg of metoprolol IV at that time with improvement in heart rate and normalization of blood pressure. He has shortness of breath to moving from bedside commode to bed. He reports his symptoms are benign. He denies any chest discomfort, lightheadedness, or syncope, however, he feels fine. REVIEW OF SYSTEMS: A 12-system review negative except for as noted above. PAST MEDICAL HISTORY: As per HPI. SOCIAL HISTORY: No active smoking, alcohol, or drugs. FAMILY HISTORY: Noncontributory. PHYSICAL EXAMINATION: VITAL SIGNS: Temperature 97.6, heart rate 81, blood pressure 113/59, respiratory rate 18, and O2 saturation 98%. GENERAL: No acute distress, alert. NECK: No JVD. CHEST: Decreased breath sounds in bilateral bases. CARDIOVASCULAR: Regular rate and rhythm. Normal S1 and S2. No S3. No S4. ABDOMEN: Soft. Bowel sounds positive. EXTREMITIES: With 3+ edema to both lower extremities. CARDIOVASCULAR MEDICATIONS: Reviewed. Metoprolol tartrate 25 mg x1 IV. STUDIES: Reviewed. Sodium 143, potassium 3.8, chloride 102, bicarbonate 14, BUN 16, creatinine 1.13, glucose 130. White blood cells 15.9, hemoglobin 8.6, platelets 329. PT 20, PTT 32. INR 1.6. AST 75, ALT 38, alkaline phosphatase 105, total bilirubin is 1.2. ASSESSMENT AND PLAN: A 64-year-old man presents with: 1. Multiple hepatic lesions. 2. Lower extremity edema, bilaterally. 3. Hypertension. 4. Metabolic acidosis. 5. Anemia. 6. Leukocytosis. RECOMMENDATIONS: 1. Obtain echocardiogram. 2. DVT prophylaxis. 3. Can use p.r.n. metoprolol. 4. Maintain on telemetry please. 5. Management of metabolic acidosis and electrolyte arrangements advised. 6. Consider diuretics. MD HENRY Stahl/MODL /[id number] MTDD
[2019-12-17] VITALS (8 sets, daily range): BP systolic 104–125; BP diastolic 55–70
[2019-12-17] MEDS: PIPER-TAZ 3.375 GM 50 ML IV SCH ×5 (00:44→23:38)
[2019-12-17] MEDS: ALBUMIN 25% 12.5GM 0.25 GM/ML BTL IV SCH ×4 (00:45→18:24)
[2019-12-17] MEDS: SODIUM BICARBONATE 650 MG TAB PO SCH ×3 (00:45→17:28)
[2019-12-17] MEDS: FUROSEMIDE INJ 10 MG/ML 4 ML VIAL IV SCH ×3 (00:45→14:53)
[2019-12-17] MEDS: MIDODRINE 2.5 MG TAB PO SCH ×4 (07:45→17:28)
[2019-12-17] MEDS: PANTOPRAZOLE 40 MG 10ML VIAL IV SCH ×2 (08:00→17:28)
[2019-12-17] MEDS: IRON SUCROSE 100 MG in SODIUM CHLORIDE 0.9% 100 ML 100 ML IV SCH (08:00)
[2019-12-17] MEDS: HEPARIN SOD (PORCINE) 5,000 UNIT/ML VIAL SC SCH ×3 (08:01→21:25)
[2019-12-17 08:36] LABS: BASOPHILS % 0.2 % (0.0-1.0); EOSINOPHILS % 0.1 % (0.0-6.0); HEMATOCRIT 23.1 % (38.2-49.6); LYMPHOCYTES # (AUTO) 1.2 (1.0-3.2); LYMPHOCYTES % 10.2 % (18.0-39.1); MEAN CORPUSCULAR HEMOGLOBIN 24.1 pg (28-32); MEAN CORPUSCULAR HGB CONC 29.9 g/dL (31-35); MEAN CORPUSCULAR VOLUME 80.8 fL (81-99); MONOCYTES # (AUTO) 0.3 (0.2-0.8); MONOCYTES % 2.9 % (4.4-11.3); NEUTROPHILS # (AUTO) 10.1 (2.1-6.9); NEUTROPHILS % 85.9 % (38.7-80.0); PLATELET COUNT 172 x10e3/uL (140-360); RED BLOOD COUNT 2.86 x10e6/uL (4.3-5.7); RED CELL DISTRIBUTION WIDTH 19.5 % (11.7-14.4)
[2019-12-17 08:40] LABS: HEMOGLOBIN 6.9 g/dL (14.0-18.0)
[2019-12-17 08:56] LABS: ALANINE AMINOTRANSFERASE 23 IU/L (0-55); ALBUMIN 2.9 g/dL (3.5-5.0); ALBUMIN/GLOBULIN RATIO 0.9 (0.8-2.0); ALKALINE PHOSPHATASE 624 IU/L (40-150); ANION GAP 16.6 mmol/L (8-16); BLOOD UREA NITROGEN 12 mg/dL (7-26); BUN/CREATININE RATIO 14 (6-25); CALCIUM 7.9 mg/dL (8.4-10.2); CARBON DIOXIDE 24 mmol/L (22-29); CHLORIDE 104 mmol/L (98-107); CREATININE, SERUM 0.87 mg/dL (0.72-1.25); EST GLOMERULAR FILTRATION RATE > 60 ML/MIN (60-); GLUCOSE 109 mg/dL (74-118); MAGNESIUM 1.5 MG/DL (1.3-2.1); PHOSPHORUS 2.2 MG/DL (2.3-4.7); SODIUM 142 mmol/L (136-145)
[2019-12-17 08:58] LABS: POTASSIUM 2.6 mmol/L (3.5-5.1)
[2019-12-17] MEDS ORDERED: FUROSEMIDE INJ 10 MG/ML 2 ML VIAL IV PRN (09:00)
[2019-12-17] MEDS ORDERED: SODIUM CHLORIDE 0.9% 250ML 250 ML IV SCH (09:00)
[2019-12-17] MEDS: POTASSIUM CHLORIDE 20 MEQ TAB CR PO SCH ×2 (09:30→21:25)
[2019-12-17 09:32] LABS: ANISOCYTOSIS SLIGHT; LYMPHOCYTES % (MANUAL) 9 % (19-48); MONOCYTES % (MANUAL) 4 % (3.4-9.0); NEUTROPHILS % (MANUAL) 87 % (40-74); PLATELET MORPHOLOGY COMMENT FEW LARGE; POLYCHROMASIA FEW; RBC MORPHOLOGY COMMENT NORMAL
[2019-12-17 09:33] LABS: PLATELET ESTIMATE ADEQUATE
[2019-12-17] MEDS ORDERED: SODIUM CHLORIDE 0.9% 250ML 250 ML ONE ×2 (12:34→20:22)
--- NOTE | 2019-12-17 15:46 | Progress Note ---
DATE: 12/17/2019 Cardiology Progress note SUBJECTIVE: Denies chest pain or shortness of breath. The patient feels his lower extremity edema is improving. He has no other complaints currently. OBJECTIVE: VITAL SIGNS: Temperature 98.6, heart rate 54, respiratory rate 19, blood pressure 107/55, and O2 saturation 100% on room air. GENERAL: In no acute distress. Alert. NECK: Supple. CHEST: Clear to auscultation bilaterally. CARDIOVASCULAR: Regular rate and rhythm. Normal S1, S2. No S3. No S4. ABDOMEN: Soft. Bowel sounds positive. EXTREMITIES: With 3+ edema to both lower extremities. CARDIOVASCULAR MEDICATIONS: Reviewed. Albumin IV 25 g q.6 hours 3/8 doses, heparin 5000 units subcu q.12 hours, midodrine 5 mg t.i.d., and furosemide 20 mg IV x1. TELEMETRY: Sinus rhythm. LABORATORY DATA: White blood cells 11.7. Hemoglobin 6.9 down from 8.6, receiving PRBC transfusion today. Platelets 172. INR 1.6, PT 20, and PTT 32. Sodium 142, potassium 2.6, chloride 104, bicarbonate 24, BUN 12, creatinine 0.8, and glucose 109. Lactic acid 2.2, trending down from 14.6. AST 51, ALT 23, alkaline phosphatase 624, total bilirubin 6, and albumin 2.4. Blood culture; no growth after 24 hours. IMAGING DATA: CT abdomen and pelvis, 10 cm segment rectosigmoid wall thickening with multiple areas of masslike wall thickening consistent with provided history of colon cancer, adjacent large left pelvic sidewall lymph nodes, numerous peripherally enhancing and central necrotic masses throughout the right lobe and left liver consistent with hepatic metastases and age-indeterminate L2 compression fracture. No definitive osseous metastatic disease. Chest x-ray with no focal pneumonia or pulmonary edema. Abdomen ultrasound with numerous heterogeneous masses throughout the right and left liver measuring 9.1 cm concerning for metastatic disease. ASSESSMENT AND PLAN: 1. A 64-year-old man, presents with hepatic metastases, hypertension, anemia, metabolic acidosis, lower extremity edema, suspect underlying lymphedema from rectal cancer. Recommend continue PRBC transfusion. Replete electrolytes. 2. Monitor for gross bleeding. 3. Albumin 2.9, receiving albumin, would couple with diuretics if okay with rest of treating physicians. 4. Hematology-Oncology evaluation. MD HENRY Stahl/GENE /[id number]
[2019-12-17] MEDS ORDERED: CITRATE OF MAGNESIA 300ML BOTTLE PO SCH (18:32)
[2019-12-17] MEDS ORDERED: ONDANSETRON HCL INJ 2MG/ML 2ML 2 MG/ML VIAL IV PRN (20:00)
[2019-12-17] MEDS ORDERED: CITRATE OF MAGNESIA 300ML BOTTLE PO NR (20:30)
[2019-12-17 20:34] LABS: BASOPHILS % 0.1 % (0.0-1.0); EOSINOPHILS % 0.1 % (0.0-6.0); HEMATOCRIT 32.3 % (38.2-49.6); HEMOGLOBIN 10.1 g/dL (14.0-18.0); LYMPHOCYTES # (AUTO) 1.8 (1.0-3.2); LYMPHOCYTES % 12.2 % (18.0-39.1); MEAN CORPUSCULAR HEMOGLOBIN 25.8 pg (28-32); MEAN CORPUSCULAR HGB CONC 31.3 g/dL (31-35); MEAN CORPUSCULAR VOLUME 82.4 fL (81-99); MONOCYTES # (AUTO) 0.6 (0.2-0.8); MONOCYTES % 4.2 % (4.4-11.3); NEUTROPHILS # (AUTO) 11.9 (2.1-6.9); NEUTROPHILS % 81.8 % (38.7-80.0); PLATELET COUNT 241 x10e3/uL (140-360); RED BLOOD COUNT 3.92 x10e6/uL (4.3-5.7); RED CELL DISTRIBUTION WIDTH 18.4 % (11.7-14.4)
[2019-12-18] VITALS (8 sets, daily range): BP systolic 111–146; BP diastolic 54–77
[2019-12-18] MEDS ORDERED: POTASSIUM CHLORIDE 20 MEQ TAB CR PO STA (00:09)
[2019-12-18] MEDS: ALBUMIN 25% 12.5GM 0.25 GM/ML BTL IV SCH ×4 (00:48→18:00)
[2019-12-18] MEDS ORDERED: POTASSIUM CHLORIDE 20MEQ/100ML 200 ML IV ONE (01:15)
[2019-12-18] MEDS ORDERED: POTASSIUM CHLORIDE 20MEQ/100ML 100 ML IV ONE ×5 (01:15→13:45)
[2019-12-18] MEDS ORDERED: SODIUM CHLORIDE 0.9% 250ML 250 ML ONE (01:35)
--- NOTE | 2019-12-18 01:57 | Consultation ---
DATE OF CONSULTATION: 12/17/2019 Nephrology Consultation REASON FOR CONSULTATION: Anasarca. HISTORY OF PRESENT ILLNESS: This is a 64-year-old male with history of hypertension, who has currently undergone an evaluation for metastatic cancer, came with worsening anasarca, prompting further evaluation and management. Nephrology was consulted for further management and care. The patient has significant anasarca with worsening edema. He denies any chest pain or palpitation. Denies any vomiting. He reports shortness of breath had improved. The patient is seen and evaluated at bedside on the medical floor. He is currently doing well with no other issues at this time. REVIEW OF SYSTEMS: Pertinent positives; lower extremity edema and shortness of breath. The rest of the 14-point review of systems have been reviewed with the patient and are negative. ALLERGIES: NO KNOWN DRUG ALLERGIES. HOME MEDICATIONS: Please see med reconciliation form. PAST MEDICAL HISTORY: Hypertension, questionable metastatic cancer, tachycardia. PAST SURGICAL HISTORY: Reports none. FAMILY HISTORY: Diabetes. SOCIAL HISTORY: No drugs. No alcohol. Does not smoke. Good social support. PHYSICAL EXAMINATION: VITAL SIGNS: Temperature is 97.5, pulse 68, respiratory rate is 21, blood pressure 116/70, pulse ox 100% on room air. GENERAL: Not in acute distress. Alert and oriented x3. Cooperative on examination. HEENT: Head is normocephalic and atraumatic. Eyes, pupils are equal, round, and reactive to light bilaterally. Extraocular movements are intact bilaterally. Throat, no evidence of any erythema or exudates in the posterior pharynx. Has poor dentition. NECK: Supple. Good range of motion. PULMONARY: Clear to auscultation bilaterally. No wheezing, no rales, no rhonchi, no crackles appreciated. CARDIOVASCULAR: Positive S1, S2. No murmurs, rubs, or gallops appreciated. ABDOMEN: Soft, nondistended, and nontender to palpation. Bowel sounds present. MUSCULOSKELETAL: Strength is 5/5 throughout. No evidence of muscle deficits on examination. No weakness appreciated. NEUROLOGICAL: Cranial nerves II through XII grossly intact. No evidence of any neurological deficits on exam. EXTREMITIES: The patient has 2+ pedal edema bilaterally in lower extremities. LABORATORY DATA: Labs show white count 14, hemoglobin 10, hematocrit is 32, and platelets of 241. Chemistry; sodium is 142, potassium 2.6, chloride 104, bicarb 24, anion gap of 15, BUN is 12, creatinine is 0.87, glucose 109, magnesium 1.5, phosphorus is 2.2. LFTs noted IMPRESSION: 1. Lower extremity edema with underlying anasarca. 2. Hypertension. 3. Leukocytosis with underlying anemia. 4. Hepatic lesions, rule out malignancy. PLAN: From a renal standpoint, his renal function is stable. He does have significant anasarca. I will go ahead and get a renal ultrasound, UPC, and microalbumin to creatinine ratio, which would be very helpful in this case. Continue on Lasix, albumin as well. We will continue same plan of care and monitor closely with primary team. MD JOSE Montalvo/MODL /[id number]
[2019-12-18 02:42] LABS: CREATININE,URINE RANDOM 42.84 mg/dL (63-166); TOTAL PROTEIN, URINE 24.3 mg/dL (1-14)
[2019-12-18] MEDS: FUROSEMIDE INJ 10 MG/ML 4 ML VIAL IV SCH ×2 (06:00)
[2019-12-18] MEDS: PIPER-TAZ 3.375 GM 50 ML IV SCH ×3 (06:00→19:05)
[2019-12-18 06:43] LABS: BASOPHILS % 0.2 % (0.0-1.0); EOSINOPHILS % 0.1 % (0.0-6.0); HEMATOCRIT 27.2 % (38.2-49.6); HEMOGLOBIN 8.4 g/dL (14.0-18.0); LYMPHOCYTES # (AUTO) 1.5 (1.0-3.2); LYMPHOCYTES % 13.7 % (18.0-39.1); MEAN CORPUSCULAR HEMOGLOBIN 25.5 pg (28-32); MEAN CORPUSCULAR HGB CONC 30.9 g/dL (31-35); MEAN CORPUSCULAR VOLUME 82.4 fL (81-99); MONOCYTES # (AUTO) 0.4 (0.2-0.8); MONOCYTES % 3.6 % (4.4-11.3); NEUTROPHILS # (AUTO) 8.6 (2.1-6.9); NEUTROPHILS % 80.5 % (38.7-80.0); PLATELET COUNT 156 x10e3/uL (140-360); RED CELL DISTRIBUTION WIDTH 18.4 % (11.7-14.4)
[2019-12-18 07:12] LABS: ALANINE AMINOTRANSFERASE 27 IU/L (0-55); ALBUMIN 3.3 g/dL (3.5-5.0); ALBUMIN/GLOBULIN RATIO 1.1 (0.8-2.0); ALKALINE PHOSPHATASE 755 IU/L (40-150); ANION GAP 16.6 mmol/L (8-16); BLOOD UREA NITROGEN 13 mg/dL (7-26); BUN/CREATININE RATIO 14 (6-25); CALCIUM 8.2 mg/dL (8.4-10.2); CARBON DIOXIDE 23 mmol/L (22-29); CHLORIDE 110 mmol/L (98-107); CREATININE, SERUM 0.93 mg/dL (0.72-1.25); EST GLOMERULAR FILTRATION RATE > 60 ML/MIN (60-); GLUCOSE 92 mg/dL (74-118); MAGNESIUM 2.2 MG/DL (1.3-2.1); SODIUM 147 mmol/L (136-145)
[2019-12-18 07:18] LABS: POTASSIUM 2.6 mmol/L (3.5-5.1)
[2019-12-18] MEDS: MIDODRINE 2.5 MG TAB PO SCH ×3 (08:00→16:00)
--- NOTE | 2019-12-18 08:36 | Diagnostic Imaging Report ---
EXAM: CHEST SINGLE (PORTABLE) DATE: 12/18/2019 6:05 AM INDICATION: Edema, fluid overload COMPARISON: 12/16/2019 FINDINGS: The lungs are symmetrically expanded without evidence for focal consolidation, pneumothorax, or significant bony pleural effusion. The cardiomediastinal silhouette is stable in appearance. No acute osseous abnormality is identified. IMPRESSION: No acute cardiopulmonary process or significant interval change identified from 12/16/2019. Signed by: Dr. Melchor Galvan MD on 12/18/2019 8:33 AM
[2019-12-18] MEDS: SODIUM BICARBONATE 650 MG TAB PO SCH ×2 (09:00→17:00)
[2019-12-18] MEDS: SPIRONOLACTONE 25 MG TAB PO SCH ×2 (09:00→17:00)
[2019-12-18] MEDS: IRON SUCROSE 100 MG in SODIUM CHLORIDE 0.9% 100 ML 100 ML IV SCH (09:30)
[2019-12-18] MEDS: PANTOPRAZOLE 40 MG 10ML VIAL IV SCH ×2 (09:33→17:11)
[2019-12-18] MEDS: HEPARIN SOD (PORCINE) 5,000 UNIT/ML VIAL SC SCH ×2 (09:36→20:45)
--- NOTE | 2019-12-18 10:00 | Diagnostic Imaging Report ---
EXAM: US RENAL RETROPERITONEAL COMP DATE: 12/18/2019 8:32 AM INDICATION: Acute kidney injury COMPARISON: CT abdomen/pelvis from 12/16/2019, limited abdominal ultrasound from 12/16/2019 FINDINGS: The right kidney is normal in size measuring 9.6 x 5.0 x 5.7 cm with cortical thickness of 1.4 cm. Cortical echogenicity is within normal limits. There is no evidence for solid renal mass, hydronephrosis, or shadowing calculi. The left kidney is normal in size measuring 10.6 x 5.9 x 4.9 cm with cortical thickness of 1.7 cm. Cortical echogenicity is within normal limits. There is no abscess or solid renal mass, hydronephrosis, or shadowing calculi. The partially distended urinary bladder demonstrates no significant abnormalities. Prevoid volume is 108 cc. IMPRESSION: Unremarkable sonographic appearance of the kidneys. Signed by: Dr. Melchor Galvan MD on 12/18/2019 9:57 AM
[2019-12-18] MEDS ORDERED: LIDOCAINE HCL 2% LOCAL INJ 5 ML SDV VIAL INJ ONE (14:38)
[2019-12-18] MEDS ORDERED: PROPOFOL IV EMULSION 10 MG/ML 20 ML VIAL ONE (14:38)
[2019-12-18] MEDS ORDERED: FENTANYL CITRATE/PF 100MCG/2 ML INJ ONE (15:11)
[2019-12-18] MEDS ORDERED: MIDAZOLAM HCL 2 MG/2 ML VIAL ONE (15:11)
--- NOTE | 2019-12-18 15:45 | Progress Note ---
DATE: Pulmonary Critical Care Progress Note I am covering for Dr. Muñoz today. SUBJECTIVE: The patient complains of being n.p.o. He is scheduled for a colonoscopy later today. He denies any abdominal pain. He is having no nausea or vomiting. He denies any fever. PHYSICAL EXAMINATION: VITAL SIGNS: The patient is afebrile. The blood pressure is 144/67, saturation is 98% and the pulse is 71. HEENT: Shows no facial swelling or erythema. LUNGS: Auscultation of lungs reveals rhonchorous breath sounds bilaterally. There is no wheezing. ABDOMEN: Soft and nontender. There is no rebound or guarding. EXTREMITIES: Shows no leg edema or calf tenderness. There is no cyanosis or clubbing. SKIN: Shows no rashes. NEUROLOGICAL: Shows no focal abnormalities. IMPRESSION: 1. Obstructive cholangiopathy with possible sepsis. 2. Colitis. 3. Liver masses. 4. Anemia. PLAN: 1. Continue current antibiotics. 2. The patient to go for colonoscopy today. 3. Continue to monitor renal function. 4. Replace potassium. Freddy Blanco MD LM/MODL /[id number]
[2019-12-18] MEDS ORDERED: ALBUMIN 25% 12.5GM 0.25 GM/ML BTL IV ONE (20:45)
--- NOTE | 2019-12-18 20:46 | Progress Note ---
DATE: 12/18/2019 SUBJECTIVE: Events noted. The patient was seen and evaluated and events from this morning noted. Discussed patient's condition with Dr. Fantasma Silva. Colonoscopy was done findings consistent with carcinoma of the colon. The patient was in no distress at the time of my visit. He was not complaining of abdominal pain, no nausea, no vomiting. No chest pain or shortness of breath. Review of system: Constitutional: No Fever, No chills. Generalized weakness. HEENT: No headaches. Cardiovascular: Denies chest pain, palpitations, PND, swelling of the legs. Respiratory: No Cough, hemoptysis or SOB GI: Denies Nausea/V/D, hematemesis, melena. : Denies Hematuria, Dysuria, Frequency Musculoskeletal: Denies joint pain. Leg edema Neuro: No focal weakness Psych: No anxiety or depression. Skin: No rashes, Itching, Hives Objective: Patient alert oriented to person time place. Patient in no apparent distress.. VITAL SIGNS: Blood pressure 111/54, respirations 17, pulse 91, temperature 98.0. HEENT: No gross abnormalities Neck: Supple no JVD Lungs: Clear to auscultation Heart: Regular rate and rhythm, no murmurs no gallops Abdomen: Soft non tender, no guarding. Possible ascites. Extremities: 4+ edema Neurologic: Alert oriented 3, no focal weakness. Psychiatrist: Normal mood, normal judgment. Skin: No rashes ASSESSMENT: Basically we are dealing with the following problems: 1. Rectal mass with hepatic metastasis. 2. Lower extremity edema. Likely result of lymphedema from patient's cancer. 3. Hypokalemia. 4. Leukocytosis. 5. Anemia. 6. Metabolic acidosis. 7. Hypertension. PLAN OF CARE: Colonoscopy findings noted. Findings consistent with carcinoma especially details as per Dr. Fantasma Silva. Cardiology, renal. Oncology and ID following patient. MD CONCETTA Bowman/GENE /[id number] MTDFrancisco
[2019-12-18] MEDS ORDERED: POTASSIUM CHLORIDE 20 MEQ TAB CR PO ONE (21:15)
--- NOTE | 2019-12-18 21:52 | Operative Report ---
DATE OF PROCEDURE: 12/18/2019 SURGEON: Fantasma Silva MD PROCEDURE: Colonoscopy with biopsies. ADDITIONAL REFERRING PHYSICIAN: Dmitriy Ramires MD. INDICATIONS FOR COLONOSCOPY: Iron deficiency anemia, abnormal CT scan of the abdomen. MEDICATIONS: The patient was done under MAC, please see anesthesiologist's note. PROCEDURE IN DETAIL: With the patient in the left lateral decubitus position, a flexible fiberoptic Olympus colonoscope was inserted into the rectum with ease and advanced all the way to the cecum. It was then withdrawn slowly, mucosa overlying the cecum appeared to be within normal limits. The scope was then withdrawn slowly, mucosa overlying the ascending, transverse, descending, and sigmoid other than for some scattered minimal diverticulosis, grossly appeared to be within normal limits. A large fully circumferential mass was noted to extend from just above the dentate line proximally to approximately 12 cm from the anal verge. Biopsies were obtained. The scope was subsequently withdrawn and the patient tolerated the procedure well. IMPRESSION: 1. Diverticulosis. 2. Rectal mass, fully circumferential extending from just above the dentate line to approximately 12 cm from the anal verge. Biopsies were obtained. 3. Internal hemorrhoids. PLAN: Follow up histology. Fantasma Silva MD [facility] [place]/[facility] /[id number] cc: Christiano Corrales MD MD Dmitriy Payton MD
[2019-12-19] VITALS (8 sets, daily range): BP systolic 122–158; BP diastolic 65–79
[2019-12-19] MEDS: PIPER-TAZ 3.375 GM 50 ML IV SCH ×5 (00:08→23:45)
--- NOTE | 2019-12-19 01:26 | Progress Note ---
DATE: 12/18/2019 Cardiology Progress Note SUBJECTIVE: No new complaints. Status post colonoscopy with finding of rectal mass. OBJECTIVE: VITAL SIGNS: Temperature 97.4, heart rate 68, respiratory rate 19, blood pressure 146/77, O2 saturation 97% on room air. GENERAL: No acute distress. Alert. NECK: No JVD. CHEST: Clear to auscultation. CARDIOVASCULAR: Regular rate and rhythm. Normal S1 and S2. ABDOMEN: Soft. Bowel sounds positive. EXTREMITIES: With 2+ edema to both lower extremities. CARDIOVASCULAR MEDICATIONS: Reviewed. 1. Heparin 5000 subcu q.12 hours. 2. Midodrine on hold. 3. Furosemide 10 mg IV p.r.n. x1. STUDIES: Colonoscopy performed today, remarkable for diverticulosis, rectal mass full circumferential, extending from just above dental line to approximately 12 cm from anal verge, status post biopsies. Internal hemorrhoids noted. White blood cells 10, hemoglobin 8, platelets 156. INR 1.6. Potassium 2.7 being repleted. Creatinine 0.9. ASSESSMENT AND PLAN: 1. Rectal mass with hepatic metastases, suspected rectal cancer metastatic. 2. Anemia. 3. Electrolyte disturbances. 4. Status post sinus tachycardia. 5. Hypertension. 6. Metabolic acidosis. 7. Lower extremity edema. RECOMMEND: 1. Correct electrolytes. 2. Discussions and goals of care with the patient and family. 3. Lower extremity edema, likely resulting from underlying lymphedema from rectal mass. 4. Guarded prognosis. We will follow closely with you. Beni Marroquin MD [facility]/THOMASL /[id number]
--- NOTE | 2019-12-19 03:42 | Progress Note ---
DATE: Neurology Progress Note SUBJECTIVE: The patient is doing well today with no complaints. OBJECTIVE: VITAL SIGNS: Temperature , on room air. GENERAL: In no acute distress. Alert and oriented x3. Cooperative on examination. PULMONARY: Clear to auscultation bilaterally. No wheezing, no rales, no rhonchi, no crackles appreciated. CARDIOVASCULAR: Positive S1 and S2. No murmurs, rubs, or gallops appreciated. GI: Abdomen is soft, nondistended and nontender to palpation. Bowel sounds present. EXTREMITIES: He does have 1 to 2+ pedal edema appreciated. LABORATORY DATA: CBC is stable is stable. Chemistry, sodium 147, potassium , chloride anion gap of 16. LFTs , ALT 27. IMPRESSION: 1. Lower extremity edema with underlying ascites. 2. Hypertension. 3. . PLAN: stand point continue with IV fluids for now. Aggressively we will treat the potassium. Continue D5W. repeat labs in the morning . MD JOSE Montalvo/MODL /[id number]
[2019-12-19] MEDS: MIDODRINE 2.5 MG TAB PO SCH ×3 (08:46→16:00)
[2019-12-19] MEDS: HEPARIN SOD (PORCINE) 5,000 UNIT/ML VIAL SC SCH ×2 (09:00→20:47)
[2019-12-19] MEDS: PANTOPRAZOLE 40 MG 10ML VIAL IV SCH ×2 (09:03→17:22)
[2019-12-19] MEDS: IRON SUCROSE 100 MG in SODIUM CHLORIDE 0.9% 100 ML 100 ML IV SCH (09:04)
[2019-12-19] MEDS: SODIUM BICARBONATE 650 MG TAB PO SCH ×2 (09:04→17:22)
[2019-12-19] MEDS ORDERED: HYDROCODONE/APAP 5MG-325MG TAB PO PRN (14:45)
[2019-12-19] MEDS ORDERED: ACETAMINOPHEN 325 MG TAB PO PRN (14:45)
[2019-12-19] MEDS ORDERED: ONDANSETRON HCL 4 MG ORAL DISINTEGRATING TAB PO PRN (17:15)
--- NOTE | 2019-12-19 20:09 | Progress Note ---
DATE: 12/19/2019 SUBJECTIVE: Events noted. This is a 64-year-old gentleman who was admitted to the hospital with a history of loss of weight. The patient underwent evaluation with a colonoscopy, which revealed the presence of a rectal mass. Unfortunately, the patient does have metastatic disease to the liver. The patient is being followed by Cardiology, ID and also has been followed up by Pulmonary. The patient was not in distress. Dr. Douglass evaluated the patient earlier and the patient has no new complaints. PHYSICAL EXAMINATION: GENERAL: The patient is alert, oriented to person, time, and place. The patient has been in no distress. VITAL SIGNS: Blood pressure 148/79, respirations 17, pulse 76, temperature 97.6, O2 saturation 98% on room air. HEENT: Head is normocephalic, atraumatic. NECK: Supple. No JVD. LUNGS: Clear to auscultation. HEART: Regular rate and rhythm. ABDOMEN: Soft. EXTREMITIES: 2+ edema. LABORATORY DATA: Hemoglobin 8.4, WBC 10.69, platelet count 156,000 as of 12/18/2019. Potassium level is 2.7 as of 12/18/2019. Sodium 147, chloride 110, CO2 of 23, BUN 13, creatinine 0.93. ASSESSMENT: 1. Rectal mass with hepatic metastases. 2. Lower extremity edema, improved. 3. Hypokalemia. 4. Leukocytosis. 5. Anemia. 6. History of hypertension. PLAN: Continue monitoring care. The patient is being followed by Dr. Fantasma Silva from a GI standpoint. We are waiting for pathology report. The patient has been advised about possible diagnosis. He is being followed up also by Oncology as well. MD CONCETTA Bowman/GENE /[id number]
[2019-12-19 20:27] LABS: BLOOD UREA NITROGEN 12 mg/dL (7-26); BUN/CREATININE RATIO 13 (6-25); CALCIUM 8.6 mg/dL (8.4-10.2); CARBON DIOXIDE 22 mmol/L (22-29); CHLORIDE 110 mmol/L (98-107); CREATININE, SERUM 0.93 mg/dL (0.72-1.25); EST GLOMERULAR FILTRATION RATE > 60 ML/MIN (60-); GLUCOSE 100 mg/dL (74-118); SODIUM 147 mmol/L (136-145)
[2019-12-19] MEDS ORDERED: POTASSIUM CHLORIDE 20 MEQ TAB CR PO ONE (21:00)
--- NOTE | 2019-12-19 21:35 | Progress Note ---
DATE: 12/19/2019 Cardiology Progress Note SUBJECTIVE: Denies chest pain or shortness of breath. OBJECTIVE: NECK: No JVD. CHEST: Clear to auscultation. CARDIOVASCULAR: Regular rate and rhythm. Normal S1, S2. ABDOMEN: Soft. Bowel sounds positive. EXTREMITIES: With 1+ edema to bilateral lower extremities. CARDIOVASCULAR MEDICATIONS: Have been reviewed. Furosemide 10 mg x1 and then 20 q.6 hours. LABORATORY DATA: Studies reviewed. Potassium 2.7, repletion advised, creatinine 0.9, glucose 92. White blood cells 10, hemoglobin 8.4, platelets 156. INR 1.6. AST 62, ALT 27, alkaline phosphatase 755. ASSESSMENT AND PLAN: A 64-year-old man presents with: 1. Lower extremity edema bilaterally in the setting of rectal mass and liver lesions. 2. Anemia. 3. Electrolyte derangements. 4. Lymphedema. Recommend await pathology results. 5. Replete electrolytes. 6. Transition diuretics to stable maintenance dose over the next 48 hours. Beni Marroquin MD AF[facility]/MODL /[id number]
[2019-12-20] VITALS (8 sets, daily range): BP systolic 134–152; BP diastolic 71–77
--- NOTE | 2019-12-20 01:46 | Progress Note ---
DATE: 12/19/2019 Nephrology Progress Note SUBJECTIVE: The patient is doing well today with no overnight events. PHYSICAL EXAMINATION: VITAL SIGNS: Temperature is 97.7, pulse 79, respiratory rate is 19, blood pressure 150/74, pulse ox 99% on room air. GENERAL: Not in acute distress. Alert and oriented x3. Cooperative on examination. HEENT: Head; normocephalic, atraumatic. Eyes; pupils are equal, round, and reactive to light bilaterally. Extraocular movements intact bilaterally. Throat; no evidence of erythema or exudates in the posterior pharynx. Has poor dentition. NECK: Supple. Good range of motion. PULMONARY: Clear to auscultation bilaterally. No wheezing, no rales, no rhonchi, no crackles appreciated. CARDIOVASCULAR: Positive S1 and S2. No murmurs, rubs, or gallops appreciated. ABDOMEN: Soft, nondistended, and nontender to palpation. Bowel sounds present. MUSCULOSKELETAL: Strength is 5/5 throughout. No evidence of any muscle deficits on examination. SKIN: Intact. Warm to touch. Good cap refill. PSYCHIATRIC: Normal affect and mood. EXTREMITIES: No edema. Good range of motion throughout. LABORATORY FINDINGS: Show white count 10.6, hemoglobin 8.4, hematocrit 27, platelets of 156. Chemistry; sodium 147, potassium is 3, chloride is 110, bicarb 22, anion gap of 18, BUN is 12, . IMPRESSION: 1. Lower extremity edema with underlying ascites. 2. Hypertension. 3. Hypokalemia. PLAN: At this time, aggressively replace potassium. Edema has much improved. Get a.m. labs. Sodium is 147. We will continue to monitor labs very closely. MD JOSE Montalvo/MODL /[id number]
[2019-12-20] MEDS: PIPER-TAZ 3.375 GM 50 ML IV SCH ×2 (05:56→11:55)
[2019-12-20 06:33] LABS: ANION GAP 18.9 mmol/L (8-16); BLOOD UREA NITROGEN 11 mg/dL (7-26); BUN/CREATININE RATIO 12 (6-25); CALCIUM 8.2 mg/dL (8.4-10.2); CARBON DIOXIDE 22 mmol/L (22-29); CHLORIDE 109 mmol/L (98-107); EST GLOMERULAR FILTRATION RATE > 60 ML/MIN (60-); GLUCOSE 84 mg/dL (74-118); SODIUM 147 mmol/L (136-145)
[2019-12-20 06:34] LABS: POTASSIUM 2.9 mmol/L (3.5-5.1)
[2019-12-20] MEDS: MIDODRINE 2.5 MG TAB PO SCH ×3 (08:00→16:00)
[2019-12-20] MEDS: IRON SUCROSE 100 MG in SODIUM CHLORIDE 0.9% 100 ML 100 ML IV SCH (08:58)
[2019-12-20] MEDS: SODIUM BICARBONATE 650 MG TAB PO SCH ×2 (08:58→17:00)
[2019-12-20] MEDS ORDERED: POTASSIUM CHLORIDE 20 MEQ TAB CR PO SCH (09:00)
[2019-12-20] MEDS: HEPARIN SOD (PORCINE) 5,000 UNIT/ML VIAL SC SCH ×2 (09:00→21:22)
[2019-12-20] MEDS: PANTOPRAZOLE 40 MG 10ML VIAL IV SCH ×2 (09:00→17:00)
[2019-12-20] MEDS ORDERED: POTASSIUM CHLORIDE 20MEQ/100ML 300 ML IV ONE (09:30)
[2019-12-20] MEDS ORDERED: CEFTRIAXONE SOD 2 GM/NS 100 ML 100 ML IV ONE (13:45)
--- NOTE | 2019-12-20 19:53 | Progress Note ---
DATE: 12/20/2019 Cardiology Progress Note SUBJECTIVE: Denies any chest pain or shortness of breath. OBJECTIVE: VITAL SIGNS: Temperature 97.5, heart rate 80, blood pressure 146/72, respiratory rate 20, and O2 saturation 98%. GENERAL: No acute distress. Alert. NECK: No JVD. CHEST: Clear to auscultation. CARDIOVASCULAR: Regular rate and rhythm. Normal S1, S2. No S3 or S4. ABDOMEN: Soft. Bowel sounds positive. EXTREMITIES: 1+ edema to bilateral lower extremities. CARDIOVASCULAR MEDICATIONS: Reviewed. Furosemide 40 mg every six hours. STUDIES: Reviewed. Potassium 2.9 and repletion underway. Sodium 147, creatinine 0.9, and glucose 84. White blood cells 10, hemoglobin 8.4, and platelets 156. INR 1.6. ASSESSMENT AND PLAN: A 64-year-old woman who presents with: 1. Colorectal mass and liver lesions metastatic colon cancer. 2. Lower extremity edema, most likely attributable to lymphedema secondary to colorectal mass. 3. Volume optimization. Continue to improve. 4. Anemia, being monitored. We will await biopsy results. 5. Correct electrolytes and volume optimization per Nephrology expertise. Beni Marroquin MD AFJaiden/GENE /[id number]
--- NOTE | 2019-12-20 20:13 | Progress Note ---
DATE: 12/20/2019 Renal Progress Note SUBJECTIVE: The patient reports doing much better today with no complaints. Potassium was low, which was replaced. PHYSICAL EXAMINATION: VITAL SIGNS: Temperature is 97.4, pulse 73, respiratory rate is 20, blood pressure 149/77, and pulse ox 99% on room air. GENERAL: Not in acute distress. Alert and oriented x3. Cooperative on examination. HEENT: Head; normocephalic, atraumatic. Eyes; pupils are equal, round, and reactive to light bilaterally. Extraocular movements intact bilaterally. Throat; no evidence of erythema or exudates in the posterior pharynx. Has poor dentition. NECK: Supple. Good range of motion. PULMONARY: Clear to auscultation bilaterally. No wheezing, no rales, no rhonchi, no crackles appreciated. CARDIOVASCULAR: Positive S1 and S2. No murmurs, rubs, or gallops appreciated. ABDOMEN: Soft, nondistended, and nontender to palpation. Bowel sounds present. MUSCULOSKELETAL: Strength is 5/5 throughout. No evidence of any muscle deficits on examination. EXTREMITIES: He does have trace to 1+ pedal edema bilateral lower extremities. LABORATORY FINDINGS: Show white count 10, hemoglobin 8.4, hematocrit is 27, and platelets of 156. Chemistry; sodium 147, potassium 2.9, chloride 109, bicarb 22, anion gap of 18, BUN is 11, creatinine is 0.9, and calcium is 8.2. MICROBIOLOGY: Blood cultures, no growth. IMAGING STUDIES: Nothing new. IMPRESSION: 1. Lower extremity edema with underlying ascites. 2. Hypertension. 3. Electrolyte abnormalities. PLAN: Replace potassium aggressively. Continue with IV diuretics for chlorothiazide for now due to elevated sodium level. Monitor him very closely. Discussed plan of care with the patient at bedside and he verbalized understanding. MD JOSE Montalvo/MODL /[id number]
[2019-12-20] MEDS: CHLOROTHIAZIDE SODIUM 500 MG VIAL IV SCH (21:22)
--- NOTE | 2019-12-20 22:39 | Progress Note ---
DATE: 12/20/2019 Events noted. SUBJECTIVE: The patient reports he has been comfortable. The patient will be followed by Renal, Cardiology, General Surgery and Pulmonary. The patient has felt better. Potassium is being followed up by Renal. The patient has not had reported episodes of nausea or vomiting. No chest pain or shortness of breath today. OBJECTIVE: GENERAL: The patient has been alert and oriented to person, time, and place. VITAL SIGNS: Recent blood pressure 134/76, respirations 20, pulse 71, and temperature 97.5. The patient's examination is pending at this time and this has been unchanged. LABORATORY DATA: Noted. Hemoglobin 8.4, white blood cell count 10.69, and platelet count 156,000. Chem profile reveal sodium 147, potassium 2.9, chloride 109, CO2 of 22, BUN 11 and creatinine 0.90. ASSESSMENT: 1. Metastatic colon cancer. 2. Rectal mass. 3. Lower extremity edema. 4. Hypokalemia. 5. Anemia. 6. Leukocytosis. 7. History of hypertension. PLAN OF CARE: Continue to replace potassium aggressively. The patient has given IV diuretics. The patient has been advised about possible diagnosis and I discussed earlier this morning with Dr. Garrido Oncologist. He stated that he is not a candidate for chemotherapy and the patient will not be able to tolerate the treatment. Per Dr. Garrido, unfortunately, the patient's survival, it is early to say probably two months. I will be discussing with the patient's sister about his condition. I will be . MD CONCETTA Bowman/GENE /[id number]
[2019-12-21] VITALS (7 sets, daily range): BP systolic 129–150; BP diastolic 61–87
[2019-12-21] MEDS: CHLOROTHIAZIDE SODIUM 500 MG VIAL IV SCH ×2 (05:40→13:55)
[2019-12-21 06:33] LABS: ANION GAP 16.7 mmol/L (8-16); BLOOD UREA NITROGEN 10 mg/dL (7-26); BUN/CREATININE RATIO 13 (6-25); CALCIUM 8.1 mg/dL (8.4-10.2); CARBON DIOXIDE 24 mmol/L (22-29); CHLORIDE 107 mmol/L (98-107); EST GLOMERULAR FILTRATION RATE > 60 ML/MIN (60-); GLUCOSE 102 mg/dL (74-118); SODIUM 145 mmol/L (136-145)
[2019-12-21 06:35] LABS: POTASSIUM 2.7 mmol/L (3.5-5.1)
[2019-12-21] MEDS: MIDODRINE 2.5 MG TAB PO SCH ×3 (07:52→16:08)
[2019-12-21] MEDS: IRON SUCROSE 100 MG in SODIUM CHLORIDE 0.9% 100 ML 100 ML IV SCH (07:52)
[2019-12-21] MEDS: SODIUM BICARBONATE 650 MG TAB PO SCH ×2 (07:52→16:08)
[2019-12-21] MEDS: PANTOPRAZOLE 40 MG 10ML VIAL IV SCH ×2 (07:52→16:08)
[2019-12-21] MEDS: HEPARIN SOD (PORCINE) 5,000 UNIT/ML VIAL SC SCH ×2 (07:59→20:06)
[2019-12-21] MEDS ORDERED: POTASSIUM CHLORIDE 20MEQ/100ML 300 ML IV ONE (08:00)
--- NOTE | 2019-12-21 09:25 | Progress Note ---
DATE: 12/21/2019 Cardiology Progress Note SUBJECTIVE: Mr. Phillips has no complaints today. OBJECTIVE: VITAL SIGNS: Temperature 97.5, heart rate 78, blood pressure 129/61, respiratory rate 17, and O2 saturation 98%. GENERAL: No acute distress. Alert. NECK: No JVD. CHEST: Clear to auscultation. CARDIOVASCULAR: Regular rate and rhythm. Normal S1 and S2. ABDOMEN: Soft. Bowel sounds positive. EXTREMITIES: With 1+ edema. CARDIOVASCULAR MEDICATIONS: Reviewed. Furosemide, chlorothiazide, midodrine, and iron sulfate. STUDIES: Reviewed. Sodium 145, potassium 2.7, creatinine 0.8, and glucose 102. White blood cells 10, hemoglobin 8.4, and platelets 156. ASSESSMENT AND PLAN: 1. Colorectal mass with liver lesions, concerning for metastatic colon cancer and lymphedema. 2. Status post sinus tachycardia and artifact on telemetry. 3. Lymphedema. 4. Anemia. 5. Electrolyte derangements. RECOMMEND: 1. Correct electrolytes. 2. Transition diuretic dose to maintenance. Consider adding spironolactone. Beni Marroquin MD AFV/MODL /[id number]
[2019-12-21] MEDS ORDERED: MAGNESIUM SULFATE 2GM/50ML 50 ML IV ONE (10:30)
[2019-12-21] MEDS: SPIRONOLACTONE 25 MG TAB PO SCH (10:40)
[2019-12-21] MEDS ORDERED: CEFTRIAXONE SOD 2 GM/NS 100 ML 100 ML IV SCH (14:00)
[2019-12-22] VITALS: BP 156/81
--- NOTE | 2019-12-22 02:20 | Progress Note ---
DATE: 12/21/2019 Nephrology Progress Note SUBJECTIVE: The patient is doing well today with no complaints. His potassium was low, which was being replaced. LABORATORY DATA: Lab findings show white count 10.6, hemoglobin 8.4, hematocrit 27, platelets 156. Chemistry, sodium 145, potassium 2.7, chloride 107, bicarb 24, anion gap of 16, BUN 12, creatinine was 0.8. Magnesium was 2.1. MICROBIOLOGY: None. IMAGING: None. PHYSICAL EXAMINATION: VITAL SIGNS: Temperature is 98, pulse 68, respiratory rate is 18, blood 136/73, pulse ox 97% on room air. GENERAL: Not in acute distress. Alert and oriented x3. He is cooperative on examination. HEENT: Head; normocephalic, atraumatic. Eyes; pupils are equal, round, and reactive to light bilaterally. PULMONARY: Clear to auscultation bilaterally. No wheezing, no rales, no rhonchi, no crackles appreciated. CARDIOVASCULAR: Positive S1 and S2. No murmurs, rubs, or gallops appreciated. GI: Abdomen is soft, nondistended, and nontender to palpation. Bowel sounds present. MUSCULOSKELETAL: Strength is 5/5 throughout. No evidence of any muscle deficits on examination. SKIN: Intact. Warm to touch. Good cap refill. EXTREMITIES: Trace edema appreciated. IMPRESSION: 1. Lower extremity edema with underlying ascites. 2. Hypertension. 3. Hypokalemia. PLAN: Stop all diuretics. Replace potassium accordingly. Add aldactone as well. Monitor very closely. Possible discharge later today or tomorrow. MD JOSE Montalvo/MODL /[id number]
[2019-12-22 04:00] VITALS: BP 148/76
[2019-12-22 08:08] VITALS: BP 108/63
[2019-12-22] MEDS: SODIUM BICARBONATE 650 MG TAB PO SCH ×2 (08:20→16:55)
[2019-12-22] MEDS: IRON SUCROSE 100 MG in SODIUM CHLORIDE 0.9% 100 ML 100 ML IV SCH (08:20)
[2019-12-22] MEDS: SPIRONOLACTONE 25 MG TAB PO SCH (08:20)
[2019-12-22] MEDS: PANTOPRAZOLE 40 MG 10ML VIAL IV SCH ×2 (08:20→16:55)
[2019-12-22] MEDS: MIDODRINE 2.5 MG TAB PO SCH ×3 (08:20→16:55)
[2019-12-22] MEDS: HEPARIN SOD (PORCINE) 5,000 UNIT/ML VIAL SC SCH (08:21)
[2019-12-22] MEDS ORDERED: SPIRONOLACTONE 25 MG TAB PO SCH (09:00)
[2019-12-22 09:32] VITALS: BP 108/63
[2019-12-22 11:33] VITALS: BP 114/61
[2019-12-22] MEDS ORDERED: POTASSIUM CHLORIDE 20 MEQ TAB CR PO ONE (17:30)
[2019-12-22] MEDS ORDERED: ALDACTONE25 MG PO (18:47)
[2019-12-22] MEDS ORDERED: Ondansetron Oral Disintegratin PO (18:47)
[2019-12-22] MEDS ORDERED: SODIUM BICARBO650 MG PO (18:47)
[2019-12-22] MEDS ORDERED: MIDODRINE HCL2.5 MG PO (18:47)
[2019-12-22] MEDS ORDERED: K DUR10 MEQ PO (18:47)
--- NOTE | 2019-12-22 20:34 | Progress Note ---
DATE: 12/22/2019 Cardiology Progress Note SUBJECTIVE: Mega has no new complaints today. Denies chest pain or shortness of breath. Edema of lower extremities has improved somewhat. OBJECTIVE: VITAL SIGNS: Temperature 97.5, heart rate 62, blood pressure 114/61, respiratory rate 16, and O2 saturation 100%. GENERAL: In no acute distress. Alert. NECK: No JVD. CHEST: With decreased breath sounds. CARDIOVASCULAR: Regular rate and rhythm. Normal S1 and S2. ABDOMEN: Soft. Bowel sounds positive. EXTREMITIES: 1+ edema. CARDIOVASCULAR MEDICATIONS: Reviewed. Furosemide, spironolactone, and midodrine. STUDIES: Reviewed. Creatinine 0.8. White blood cells 10, hemoglobin 8.4, and platelets 156. ASSESSMENT: A 64-year-old man presents with colorectal cancer with liver metastases and underlying lymphedema in the setting of the above, also morbid obesity, anemia, and he is status post episode of sinus tachycardia and artifact on telemetry. RECOMMENDATIONS: Heme/Onc evaluation. Prognosis in the setting of advanced cancer remains guarded. Outpatient discussions for goals of care and consideration with the patient's prognosis. Okay to discharge from a cardiovascular standpoint. Can use compression socks as an outpatient to assist with management of lower extremity lymphedema. MD HENRY Stahl/THOMASL /[id number]
--- NOTE | 2019-12-22 21:34 | Progress Note ---
DATE: 12/22/2019 SUBJECTIVE: Mr. Phillips is a 64-year-old male referred to me for evaluation of metastatic cancer of the colon as dictated before. The patient is a hospice candidate with massive intrahepatic metastases, so these lesions measuring 7.9 x 7.4 x 9.8 cm, 10 cm segment of the colon being affected. Because of extremely poor performance status, neoadjuvant chemotherapy will not be tolerated and hence suggest hospice care. I have spoken to Dr. Corrales at length as well as today with Dr. Cosmo Guzman, who concurs with my decision. The patient if at all if could have a colostomy for some time for palliation. However, the median survival expected is less than two months as reported in most of the literature. Thank you very much for allowing me to participate in management of this patient. MD LING Payton/GENE /[id number]
--- NOTE | 2019-12-23 03:31 | Progress Note ---
DATE: 12/22/2019 Nephrology Progress Note SUBJECTIVE: The patient is doing well today with no complaints. being discharged today. PHYSICAL EXAMINATION: VITAL SIGNS: He is afebrile, normotensive. Respiratory rate is good. GENERAL: Not in acute distress. Alert and oriented x3. Cooperative on examination. HEENT: Head is normocephalic and atraumatic. Eyes; pupils are equal, round, and reactive to light bilaterally. Extraocular movements are intact bilaterally. Throat, no evidence of any erythema or exudates in the posterior pharynx. Has poor dentition. NECK: Supple. Good range of motion. PULMONARY: Clear to auscultation bilaterally. No wheezing, no rales, no rhonchi, no crackles appreciated. CARDIOVASCULAR: Positive S1 and S2. No murmurs, rubs, or gallops appreciated. GI: Abdomen is soft, nondistended, and nontender to palpation. Bowel sounds present. MUSCULOSKELETAL: Strength is 5/5 throughout. No evidence of muscle deficits on examination. No weakness appreciated. NEUROLOGICAL: Cranial nerves II through XII grossly intact. No evidence of any neurological deficits on exam. SKIN: Intact. Warm to touch. Good cap refill . LABORATORY DATA: CBC stable. Chemistry just showed a potassium of 3, which was replaced prior to being discharge. MICROBIOLOGY: Blood cultures, no growth. IMAGING STUDIES: Nothing new. IMPRESSION: 1. Lower extremity edema with underlying ascites. 2. Hypertension. 3. Hypokalemia. PLAN: At this time, the patient received discharge to home. Continue same plan of care. Plan to discharge . MD JOSE Montalvo/GENE /[id number]
== END 2019-12-22 20:41 | disposition home or self-care (01) | DRG 872 ==
LOC: ER 15:30 → ERHOLD 15:32 → MED/SURG3 17:39 → OBSVTOIN 12-16 10:50
PROVIDERS: ADMIT Internal Medicine; ATTEND Internal Medicine
PROC: 30233N1 Transfusion of Nonautologous Red Blood Cells into Peripheral Vein, Percutaneous Approach (ICD-10-PCS; 2019-12-17)
PROC: 0DBP8ZX Excision of Rectum, Via Natural or Artificial Opening Endoscopic, Diagnostic (ICD-10-PCS; principal; 2019-12-18 17:30)
DX: A41.9 Sepsis, unspecified organism (principal); E87.2 Acidosis; K76.6 Portal hypertension; C19 Malignant neoplasm of rectosigmoid junction; C78.7 Secondary malignant neoplasm of liver and intrahepatic bile duct; R18.8 Other ascites; R18.0 Malignant ascites; I47.1 Supraventricular tachycardia; E88.09 Other disorders of plasma-protein metabolism, not elsewhere classified; R60.9 Edema, unspecified; I10 Essential (primary) hypertension; K64.8 Other hemorrhoids; K57.90 Diverticulosis of intestine, part unspecified, without perforation or abscess without bleeding; D50.9 Iron deficiency anemia, unspecified; E87.6 Hypokalemia; N40.0 Benign prostatic hyperplasia without lower urinary tract symptoms; K76.9 Liver disease, unspecified; I89.0 Lymphedema, not elsewhere classified; Z11.59 Encounter for screening for other viral diseases; E66.01 Morbid (severe) obesity due to excess calories; Z68.27 Body mass index [BMI] 27.0-27.9, adult; E87.8 Other disorders of electrolyte and fluid balance, not elsewhere classified
CPT/HCPCS: 36415; 45380; 71045; 74177; 76705; 76770; 80048; 80053; 81001; 82044; 82270; 82378; 82550; 82553; 82570; 82607; 82728; 82746; 82948; 83540; 83605; 83735; 83880; 84100; 84132; 84156; 84436; 84443; 84466; 84479; 84484; 85025; 85045; 85610; 85730; 86850; 86900; 86920; 87040; 88305; 88342; 93005; 93306; 93970; 99284; G0378; J0696; J1644; J1756; J1940; J2001; J2250; J2543; J3010; J3370; J3475; J3480; J7030; J7050; P9016; Q9967; U0002